=== PATIENT | female | born 1955 | race Caucasian/White ===

== ENCOUNTER 2017-03-30 23:36 | Inpatient (IN) | payer OTHER ==
[~2017-03-30] VITALS: Ht 167.6 cm; Wt 71.1 kg
[~2017-03-30 23:36] MED LIST: ALBU8I INH; ASCO500C PO; ATEN-104 PO; B12-1CHW CHEW; CO Q30CA PO; DENO120P SQ; ECHI125C PO; FASL250I IM; FLAX100013 PO; HYDR-3533 PO; IBUP-232 PO; LISI-360 PO; LORA0.5T PO; LORA10TA PO; LOVA40TA PO; MEDR4PAK3 PO; MULT-116 PO; OMEG500C2 PO; TAB-TAB PO
[2017-03-30 23:39] VITALS: BP 152/78; PULSE 103; RESP 16; TEMP 98.3; O2SAT 99
--- NOTE | 2017-03-30 23:48 | PD ---
HPI Chief Complaint: intracranial mass Time Seen by Provider: 23:39 Travel History International Travel<30 days: No Contact w/Intl Traveler<30days: No Traveled to known affect area: No History of Present Illness HPI 61-year-old female transferred from [facility], accepted by neurosurgeon Dr. Corrales for a left temporal intracranial mass with intracranial hemorrhage. Patient presented to their hospital strokelike symptoms. The symptoms which consisted of right-sided weakness/numbness have since resolved. The patient reports feeling slightly dizzy currently. She otherwise feels well. Workers Compensation Claims Specialist Dr. Hernandes was in the emergency department when the patient arrived , and will be admitting the patient to his service. PFSH Past Medical History Anxiety: Yes Depression: Yes Cancer: Yes (BREAST THYROID) High Cholesterol: Yes COPD: Yes Diminished Hearing: No Hypertension: Yes Past Surgical History Endocrine Surgery: Yes (HEPATIC ANGINOMA X2) Mastectomy: Yes (RT LT INFUSA PORT) Tonsillectomy: Yes (ADNOIDS) Other Surgery: Yes (THYROID CA) Social History Alcohol Use: Yes (2 DRINKS 5XS WEEK) Tobacco Use: No Substance Use: No Allergies-Medications (Allergen,Severity, Reaction): Coded Allergies: Penicillin (Verified Allergy, Severe, RASH, 06/01/14) Codeine (Verified Adverse Reaction, Mild, N/V, 06/01/14) Reported Meds & Prescriptions Reported Meds & Active Scripts Active Ventolin Hfa (Albuterol Sulfate) 8 Gm Aero 2 Puff INH Q4 PRN * SHAKE WELL BEFORE USE * Motrin (Ibuprofen) 600 Mg Tab 600 Mg PO QID GIVE WITH FOOD Medrol Dosepak (Methylprednisolone) 4 Mg Marvin 4 Mg PO DIRECTED TAKE DIRECTED Reported Co Q-10 (Coenzyme Q10 (Ubidecarenone)) 30 Mg Cap 1 Tab PO DAILY [place]-3 Krill Oil (Krill Oil) 500 Mg Cap 500 Mg PO DAILY Echinacea 125 Mg Cap 125 Mg PO DAILY Teodoro Mag Zinc +D3 (Multiple Minerals W/ Vitamins) +D3 Tab 1 Tab PO DAILY Vitamin C (Ascorbic Acid) 500 Mg Cap 500 Mg PO DAILY [id number] (Mecobalamin) 1 Mg Chw 1 Mg CHEW DAILY Flax Seed Oil (Flaxseed (Linseed)) 1,000 Mg Cap 1 Tab PO DAILY Multivitamin (Multivitamins) 1 Tab Tab 1 Tab PO DAILY Xgeva (Denosumab) Inj 1 Mg SQ MONTHLY Faslodex (Fulvestrant) 250 Mg Inj 500 Mg IM Lorazepam 0.5 Mg Tab 0.5 Mg PO Q6 PRN Lortab 5 mg/325 mg (Hydrocodone/Acetaminophen 5 mg/325 mg) 1 Tab 1 Tab PO Q4H PRN Claritin 10 Mg Tab (Loratadine) 10 Mg Tab 10 Mg PO DAILY Lisinopril 10 Mg Tab 10 Mg PO DAILY Lovastatin 40 Mg Tab 40 Mg PO HS Atenolol 100 Mg Tab 100 Mg PO DAILY Review of Systems Except as stated in HPI: all other systems reviewed are Neg Physical Exam Narrative GENERAL: Well-developed, well-nourished, awake, alert, no apparent distress. SKIN: Focused skin assessment warm/dry. HEAD: Atraumatic. Normocephalic. EYES: Pupils equal and round. No scleral icterus. No injection or drainage. ENT: Mucous membranes pink and moist. NECK: Trachea midline. No JVD. CARDIOVASCULAR: Regular rate and rhythm. RESPIRATORY: No accessory muscle use. MUSCULOSKELETAL: No obvious deformities. No clubbing. No cyanosis. No edema. NEUROLOGICAL: Awake and alert. No obvious cranial nerve deficits. Motor grossly within normal limits. Normal speech. No focal deficits. PSYCHIATRIC: Appropriate mood and affect; insight and judgment normal. MDM Medical Decision Making Medical Screen Exam Complete: Yes Emergency Medical Condition: Yes Differential Diagnosis Intracranial mass, intracranial hemorrhage Narrative Course See HPI Diagnosis Primary Impression: Intracranial mass Additional Impression: Intracranial hemorrhage Admitting Information Admitting Physician Requests: Admit Davon Rushing MD Mar 30, 2017 23:48
[2017-03-31] VITALS (17 sets, daily range): BP systolic 120–170; BP diastolic 65–96; PULSE 91–101; RESP 12–20; TEMP 96.3–98.8; O2SAT 93–100
[2017-03-31] MEDS ORDERED: ONDANSETRON HCL 4 MG/2 ML VIAL IV PRN (00:15)
[2017-03-31] MEDS ORDERED: MAGNESIUM SULFATE INJ 2 GM in SODIUM CHLORIDE 0.9% INJ 96 ML IV PRN (00:15)
[2017-03-31] MEDS ORDERED: CHLORHEXIDINE GLUCONATE 2 % 1 PACK (2 CLOTHS) TOP PRN (00:15)
[2017-03-31] MEDS ORDERED: POTASSIUM PHOSPHATE INJ 30 MMOL in SODIUM CHLOR 0.9% 250 ML INJ 250 ML IV PRN (00:15)
[2017-03-31] MEDS ORDERED: LABETALOL HCL 100 MG/20 ML VIAL IV PUSH PRN (00:15)
[2017-03-31] MEDS ORDERED: DEXTROSE 50% IN WATER 50 ML VIAL(D50) IV PUSH PRN (00:15)
[2017-03-31] MEDS ORDERED: POTASSIUM CHLOR 40 MEQ PREMIX 100 ML IV PRN ×2 (00:15)
[2017-03-31] MEDS ORDERED: MAGNESIUM SULFATE INJ 4 GM in SODIUM CHLORIDE 0.9% INJ 92 ML IV PRN (00:15)
[2017-03-31] MEDS ORDERED: POTASSIUM PHOSPHATE MONOBASIC 500 MG TAB PO PRN (00:15)
[2017-03-31] MEDS ORDERED: niCARdipine INJ 25 MG in SODIUM CHLOR 0.9% 250 ML INJ 250 ML IV SCH (00:15)
[2017-03-31] MEDS ORDERED: MAGNESIUM OXIDE 400 MG TAB PO PRN (00:15)
[2017-03-31] MEDS ORDERED: POTASSIUM CHLOR 20 MEQ PREMIX 100 ML IV PRN ×2 (00:15)
[2017-03-31] MEDS ORDERED: SODIUM PHOSPHATE INJ 30 MMOL in SODIUM CHLOR 0.9% 250 ML INJ 240 ML IV PRN (00:15)
[2017-03-31] MEDS ORDERED: MISCELLANEOUS NURSING INFORMATION XX SCH (00:15)
[2017-03-31] MEDS ORDERED: POTASSIUM PHOSPHATE MONOBASIC 500 MG TAB PO/TUBE PRN (00:15)
[2017-03-31] MEDS ORDERED: FLUT50SP EACH NARE (00:28)
[2017-03-31] MEDS ORDERED: MAGN400T2 PO (00:28)
[2017-03-31] MEDS ORDERED: [UNRECOGNIZED DRUG - CODE] PO (00:28)
[2017-03-31] MEDS ORDERED: LOVA40TA PO (00:28)
[2017-03-31] MEDS ORDERED: MONT10TA2 PO (00:28)
[2017-03-31] MEDS ORDERED: METO25TA3 PO (00:28)
[2017-03-31] MEDS ORDERED: DOCU100C PO (00:28)
[2017-03-31] MEDS ORDERED: LISI-515 PO (00:28)
[2017-03-31] MEDS ORDERED: ESCI20TA PO (00:28)
[2017-03-31] MEDS ORDERED: FAMO20TA2 PO (00:28)
[2017-03-31] MEDS ORDERED: CALC600T64 PO (00:28)
[2017-03-31] MEDS ORDERED: FLAX100013 PO (00:28)
[2017-03-31] MEDS ORDERED: CHLO4TAB PO (00:28)
[2017-03-31] MEDS ORDERED: OXYC-432 PO (00:28)
[2017-03-31] MEDS ORDERED: PALB100C (00:28)
[2017-03-31] MEDS ORDERED: DENO120P SQ (00:28)
[2017-03-31] MEDS ORDERED: FASL250I IM (00:28)
[2017-03-31] MEDS ORDERED: VITATAB11 PO (00:28)
[2017-03-31] MEDS ORDERED: FURO20TA PO (00:28)
[2017-03-31] MEDS ORDERED: MILKSUS PO (00:28)
[2017-03-31] MEDS ORDERED: OMEG100010 PO (00:28)
[2017-03-31] MEDS ORDERED: ASPI81TA81 PO (00:28)
[2017-03-31] MEDS ORDERED: AMIO200T PO (00:28)
[2017-03-31] MEDS ORDERED: POLYPOW5 PO (00:28)
[2017-03-31] MEDS ORDERED: LORA-373 PO (00:28)
[2017-03-31] MEDS ORDERED: MULT-159 PO (00:28)
[2017-03-31] MEDS: DEXAMETHASONE SOD PHOS 4 MG/ML VIAL IV PUSH SCH ×5 (01:17→23:54)
[2017-03-31] MEDS: levETIRAcetam INJ 500 MG in SODIUM CHLORIDE 0.9% INJ 100 ML IV SCH ×2 (01:36→12:50)
--- NOTE | 2017-03-31 02:26 | HHI.HP ---
HPI Service Critical Care Medicine Primary Care Physician Reanna Conroy MD Admission Diagnosis intracranial mass, intracranial hemorrhage Diagnosis: Chief Complaint: weakness Travel History International Travel<30 Days: No Contact w/Intl Traveler <30 Da: No Traveled to Known Affected Are: No History of Present Illness This is a 61-year-old female transferred from outside hospital. She originally presented to the outside facility with right-sided weakness and difficulty speaking. She was brought in by her family. CT head at the outside hospital demonstrated a left temporal mass with associated edema and intraparenchymal hemorrhage. She was transferred emergently to our facility for neurosurgery consultation. When she arrived here, she states all of her symptoms have resolved. She denies headache, weakness, numbness, speech problems currently. Denies chest pain, fever, chills, shortness of breath. She does endorse back pain which is chronic for her secondary to breast cancer metastases. The remainder the review systems is negative unless otherwise specified. Review of Systems Constitutional: DENIES: Fatigue, Fever, Weight loss, Chills, Dizziness Eyes: DENIES: Blurred vision, Diplopia, Photosensitivity, Double Vision Respiratory: DENIES: Cough, Hemoptysis, Sputum production, Shortness of breath Cardiovascular: DENIES: Chest pain, Palpitations, Syncope, Dyspnea on Exertion Gastrointestinal: DENIES: Abdominal pain, Constipation, Diarrhea, Nausea, Vomiting Musculoskeletal: COMPLAINS OF: Back pain Integumentary: DENIES: Breast masses Neurologic: COMPLAINS OF: Headache, Localized weakness, Speech Problems, DENIES: Abnormal gait, Paresthesias, Seizures, Tremor Psychiatric: COMPLAINS OF: Confusion Past Family Social History Allergies: Coded Allergies: Contrast Media (Verified Allergy, Severe, 03/30/17) Penicillin (Verified Allergy, Severe, RASH, 03/30/17) Codeine (Verified Adverse Reaction, Mild, N/V, 03/30/17) Past Medical History Anxiety Depression Thyroid cancer Breast cancer with metastases to the spine Hyperlipidemia COPD Hypertension Past Surgical History Hepatic hemangioma resection 2 [id number] Mastectomy Tonsillectomy Adenoidectomy Thyroidectomy Reported Medications Ventolin Hfa (Albuterol Sulfate) 8 Gm Aero 2 Puff INH Q4 PRN * SHAKE WELL BEFORE USE * Motrin (Ibuprofen) 600 Mg Tab 600 Mg PO QID GIVE WITH FOOD Medrol Dosepak (Methylprednisolone) 4 Mg Marvin 4 Mg PO DIRECTED TAKE DIRECTED Co Q-10 (Coenzyme Q10 (Ubidecarenone)) 30 Mg Cap 1 Tab PO DAILY [place]-3 Krill Oil (Krill Oil) 500 Mg Cap 500 Mg PO DAILY Echinacea 125 Mg Cap 125 Mg PO DAILY Teodoro Mag Zinc +D3 (Multiple Minerals W/ Vitamins) +D3 Tab 1 Tab PO DAILY Vitamin C (Ascorbic Acid) 500 Mg Cap 500 Mg PO DAILY [id number] (Mecobalamin) 1 Mg Chw 1 Mg CHEW DAILY Flax Seed Oil (Flaxseed (Linseed)) 1,000 Mg Cap 1 Tab PO DAILY Multivitamin (Multivitamins) 1 Tab Tab 1 Tab PO DAILY Xgeva (Denosumab) Inj 1 Mg SQ MONTHLY Faslodex (Fulvestrant) 250 Mg Inj 500 Mg IM Lorazepam 0.5 Mg Tab 0.5 Mg PO Q6 PRN Lortab 5 mg/325 mg (Hydrocodone/Acetaminophen 5 mg/325 mg) 1 Tab 1 Tab PO Q4H PRN Claritin 10 Mg Tab (Loratadine) 10 Mg Tab 10 Mg PO DAILY Lisinopril 10 Mg Tab 10 Mg PO DAILY Lovastatin 40 Mg Tab 40 Mg PO HS Atenolol 100 Mg Tab 100 Mg PO DAILY Active Ordered Medications See MAR Family History reviewed and found to be noncontributory to her acute illness Social History 2 drinks, 5x/wk, denies tob, doa. Physical Exam Vital Signs Vital Signs Date Time Temp Pulse Resp B/P Pulse Ox O2 Delivery O2 Flow Rate FiO2 03/31/17 02:00 92 16 131/65 99 Room Air 03/31/17 01:30 99 16 158/83 99 Room Air 03/31/17 00:45 101 16 139/79 97 Room Air 03/31/17 00:00 101 16 140/74 97 Room Air 03/30/17 23:39 98.3 103 16 152/78 99 Physical Exam GENERAL: Middle-aged female, sitting in bed HEENT: Normocephalic. Atraumatic. Pupils equal, round, reactive, conjugate. Mucous membranes are moist NECK: Trachea is midline. There is no JVD. CHEST: Equal chest rise. On room air CARDIOVASCULAR: Normal rate, regular rhythm. Sinus by telemetry ABDOMEN: Soft, nontender, nondistended. No guarding. MUSCULOSKELETAL: Pulses 2+. No peripheral edema. NEUROLOGICAL: GCS 15. Pupils as above. Cranial nerves II through XII grossly intact. No gross focal motor or sensory deficits. Muscle strength 5/5 in all extremities. Sensation grossly intact. Assessment and Plan Assessment and Plan Assessment: 61yF with stage IV breast cancer with metastatses to the spine who presents with left temporal mass with associated intraparenchymal hemorrhage. Although she is now neuro intact, she remains critically ill with new intracerebral hemorrhage and high risk for decompensation. Admit to ICU. frequent neuro checks. repeat interval head CT. MRI for evaluation of the mass, which is likely metastatic disease in origin. neurosurgical consultation. theresa. Plan: Left temporal mass Intraparenchymal hemorrhage -- repeat interval head CT -- frequent neuro checks -- admit to ICU -- MRI for eval of the mass -- neurosurgery consult: Antoni -- decadron Back pain secondary to spinal mets -- oxycodone 5mg po q4h prn This patient remains critically ill with one or more organ systems which are or may become a threat to life. I have spent in excess of 40 minutes discontinuously in the care and management of this patient. This time is exclusive of procedures, and includes, but is not limited to, evaluation of the patient, review of the medical record, discussions with family, consultants, nursing staff, or respiratory therapy, and documentation in the medical record. Code Status Full Code Leopoldo Hernandes MD Mar 31, 2017 02:25
[2017-03-31] MEDS: INSULIN NovoLIN REGULAR SUPPLEMENTAL SCALE SQ SCH ×5 (03:00→22:01)
[2017-03-31] MEDS: hydrALAZINE HCL 20 MG/ML VIAL IV PUSH PRN (04:51)
--- NOTE | 2017-03-31 05:38 | RADRPT ---
EXAM DATE/TIME: 03/31/2017 05:07 [facility] COMPARISON: No previous studies available for comparison. INDICATIONS : Altered mental status. Evaluate hemorrhage. RADIATION DOSE: 34.27 CTDIvol (mGy) MEDICAL HISTORY : None SURGICAL HISTORY : None. ENCOUNTER: Initial ACUITY: 1 day PAIN SCALE: 0/10 LOCATION: cranial TECHNIQUE: Multiple contiguous axial images were obtained of the head. Using automated exposure control and adj ustment of the mA and/or kV according to patient size, radiation dose was kept as low as reasonably a chievable to obtain optimal diagnostic quality images. DICOM format image data is available electro nically for review and comparison. FINDINGS: I don't have any priors. A subacute appearing somewhat mass like area of parenchymal hemorrhage is se en in the left temporal and parietal lobe estimated at approximately 2.9 x 4.4 cm in size and surroun ded by a 4.8 x 7.1 cm area of cerebral edema. Small amounts of hemorrhage are suspected in between th e leaves of the tentorium as well, mostly on the left. Small subarachnoid blood seen of the right par ietal and frontal vertex. There is approximately 6 mm of rightward midline shift. No evidence of an acute ischemic event. CONCLUSION: Multifocal intracranial hemorrhage as above including a masslike area of parenchymal hemorrhage of th e left temporal and parietal lobes with about 6 mm of rightward midline shift. Van Orlando MD on March 31, 2017 at 5:32 Board Certified Radiologist. This report was verified electronically.
[2017-03-31] MEDS: CHLORHEXIDINE GLUCONATE 2 % 1 PACK (2 CLOTHS) TOP SCH (05:48)
[2017-03-31] MEDS: ESCITALOPRAM OXALATE 20 MG TAB PO SCH (09:00)
[2017-03-31] MEDS: DOCUSATE SODIUM 50 MG/SENNA 8.6 MG TAB PO SCH ×2 (09:00→21:59)
[2017-03-31] MEDS: FUROSEMIDE 20 MG TAB PO SCH (09:00)
[2017-03-31] MEDS: PRAVASTATIN SOD 40 MG TAB PO SCH (10:24)
[2017-03-31] MEDS ORDERED: GADODIAMIDE PF 287 MG/ML 5 ML VIAL (for RAD MRI) IV ONE (10:24)
[2017-03-31] MEDS: AMIODARONE 200 MG TAB PO SCH (10:24)
[2017-03-31] MEDS: FAMOTIDINE 20 MG TAB PO SCH ×2 (10:24→21:59)
--- NOTE | 2017-03-31 11:37 | RADRPT ---
EXAM DATE/TIME: 03/31/2017 09:27 This report includes an Addendum and supersedes previous reports for this exam. [facility] COMPARISON: CT BRAIN W/O CONTRAST, March 31, 2017, 5:07. INDICATIONS : Mass. CONTRAST: 14 cc Omniscan (gadodiamide) IV MEDICAL HISTORY : Chronic obstructive pulmonary disease. Hypertension. Carcinoma, breast, spine, thyroid, liver. SURGICAL HISTORY : Mastectomy, right. Thyroidectomy. Tonsillectomy. Mitral valve repair. ENCOUNTER: Initial ACUITY: 1 day PAIN SCORE: 0/10 LOCATION: cranial TECHNIQUE: Multiplanar, multisequence MRI of the brain was performed both prior to and following the administrat ion of paramagnetic contrast. FINDINGS: CEREBRUM: MRI confirms the presence of a well-circumscribed, 4.5 x 2.9 cm area of spontaneous increased T1 and isointense T2 weighted imaging the left temporoparietal region. On the medial aspect of this collecti on, there is an area of decreased signal intensity which shows a linear area of enhancement following gadolinium administration. Findings are most characteristic of a 1.5 x 0.8 cm left MCA aneurysm. The surrounding area of increased T1 signal intensity likely represents focal hemorrhage. A 4 mm left to right subfalcine shift. WHITE MATTER: Edema in the left temporal lobe adjacent to the parenchymal hemorrhage. POSTERIOR FOSSA: The cerebellum and brainstem are intact. The 4th ventricle is midline. The cerebellopontine angle is unremarkable. The cerebellar tonsils are normal in position. DIFFUSION IMAGING: No focal areas of restricted diffusion are seen. No evidence of acute infarction. EXTRACRANIAL: The visualized portions of the orbits and paranasal sinuses are unremarkable. POST-CONTRAST: Punctate area of enhancement is identified in the cortical region of the right occiput with additiona l areas of enhancement tracking along the tentorium on the left and adjacent to the falx on the left in the high parietal convexity anteriorly. CONCLUSION: 1. 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 2. Associated 4 mm left to right subfalcine shift. 3. Nonspecific areas of punctate enhancement in the right occiput and tracking along the left tentori um as well as adjacent to the falx in the anterior left high parietal convexity. I do not believe the signal is characteristic of hemorrhage and would consider possible metastatic deposits. Patient murdock s have a history of breast cancer. Dante Rollins MD on March 31, 2017 at 11:19 Board Certified Radiologist. This report was verified electronically. ADDENDUM: Also noted, on susceptibility weighted imaging, all the areas described above show marked susceptibil ity artifact characteristic of some degree of hemosiderin. Again, these could represent small metasta tic deposits or punctate vascular malformations which have intermittently bled in the past. These are as were not on the prior MRI of the brain report aren't imaging 07-18-2012. Dante Rollins MD on March 31, 2017 at 12:33 Board Certified Radiologist. This report was verified electronically.
--- NOTE | 2017-03-31 13:08 | RADRPT ---
EXAM DATE/TIME: 03/31/2017 09:27 [facility] COMPARISON: CT BRAIN W/O CONTRAST, March 31, 2017, 5:07. MRI BRAIN W & W/O CONTRAST, March 31, 2017, 9:27. INDICATIONS : Brain hematoma MEDICAL HISTORY : Chronic obstructive pulmonary disease. Hypertension. Carcinoma, breast, spine, thyroid, liver. SURGICAL HISTORY : Mastectomy, right. Thyroidectomy. Tonsillectomy. Mitral valve repair. ENCOUNTER: Initial ACUITY: 1 day PAIN SCORE: 0/10 LOCATION: cranial Please note a normal MRA of the brain does not entirely exclude the possibility of a small aneurysm, nor the possibility of distal intracranial vessel disease. TECHNIQUE: 3D time of flight MRA was performed. Source images, multiplanar STS MIP, and 3D volume MIP reconstru ctions were reviewed. FINDINGS: There is excellent visualization of the major intracranial arteries out to the second-order branch ve ssels. Large left temporal lobe hematoma is again noted. There is focal mass effect with splaying and inward displacement of the left middle cerebral artery vessels. There is no evidence of discrete aneurysm. Along the medial margin of the hematoma there is a T1 hypointense area with T2 hyperintensity suggest ing hyperacute hemorrhage. Susceptibility weighted imaging demonstrates concentric ringlike structure s within the hematoma of varying signal intensity characteristic of varying aged hemorrhage. SWI also demonstrates focal susceptibility artifact with small enhancing lesions along the cerebral c onvexity and in the left occipital region. The proximal arterial luminal services are smooth without findings indicative of significant vasculop athy or vasculitis. The A1 segment of the right anterior cerebral artery is hypoplastic. Posterior circulation appears normal. CONCLUSION: 1. No evidence of aneurysm or significant vasculopathy. 2. Significant mass effect on the middle cerebral artery vessels from the large left temporal lobe he matoma. 3. Review of MRI demonstrates small focal magnetic susceptibility lesions with enhancement. Hemorrhag ic metastatic deposits versus small vascular malformations with chronic hemorrhage should be consider ed as possible etiologies. Amyloid angiopathy although less likely also needs to be considered. Harlan Richey MD on March 31, 2017 at 12:31 Board Certified Radiologist. This report was verified electronically.
[2017-03-31 13:30] LABS: PROTHROMBIN TIME - PATIENT 10.7 SEC (9.8-11.6)
--- NOTE | 2017-03-31 14:23 | PD.CONS ---
[facility] Service neurosurgery Consult Requested By dr Hernandes Reason for Consult Hemorrhagic mass Primary Care Physician Reanna Conroy MD History of Present Illness This is a 61-year-old female transferred from [facility]. She presented to the outside facility with right-sided weakness and difficulty speaking. She was brought to the emergency room by her family. CT head at the outside hospital demonstrated a left temporal mass with associated edema and intraparenchymal hemorrhage. She was transferred emergently to [place]. All of her symptoms have resolved. She denies headache, weakness, numbness, speech problems currently. Denies chest pain, fever, chills, shortness of breath. She has history of breast cancer with metastases. Denies any incontinence of stool or urinary retention. Neurosurgical consultation was requested Physical Exam Physical Exam Vital Signs Vital Signs Date Time Temp Pulse Resp B/P Pulse Ox O2 Delivery O2 Flow Rate FiO2 03/31/17 02:00 92 16 131/65 99 Room Air 03/31/17 01:30 99 16 158/83 99 Room Air 03/31/17 00:45 101 16 139/79 97 Room Air 03/31/17 00:00 101 16 140/74 97 Room Air 03/30/17 23:39 98.3 103 16 152/78 99 Physical Exam GENERAL: Middle-aged female, sitting in bed HEENT: Normocephalic. Atraumatic. Pupils equal, round, reactive, conjugate. Mucous membranes are moist NECK: Trachea is midline. There is no JVD. CHEST: Equal chest rise. On room air CARDIOVASCULAR: Normal rate, regular rhythm. Sinus by telemetry ABDOMEN: Soft, nontender, nondistended. No guarding. MUSCULOSKELETAL: Pulses 2+. No peripheral edema. NEUROLOGICAL: GCS 15. Pupils as above. Cranial nerves II through XII grossly intact. No gross focal motor or sensory deficits. Muscle strength 5/5 in all extremities. Sensation grossly intact. Septic Shock Reassessment Septic Shock Reassessment Assessment and Plan Assessment and Plan Assessment and Plan Assessment: 61yF with stage IV breast cancer with metastatses to the spine who presents with left temporal mass with associated intraparenchymal hemorrhage. Although she is now neuro intact, she remains critically ill with new intracerebral hemorrhage and high risk for decompensation. Admit to ICU. frequent neuro checks. repeat interval head CT. MRI for evaluation of the mass, which is likely metastatic disease in origin. neurosurgical consultation. theresa. Plan: Left temporal mass Intraparenchymal hemorrhage -- repeat interval head CT -- frequent neuro checks -- admit to ICU -- MRI for eval of the mass -- neurosurgery consult: Antoni -- yonatan Review of Systems Constitutional: DENIES: Fatigue, Fever, Weight loss, Chills, Dizziness Eyes: DENIES: Blurred vision, Diplopia, Photosensitivity, Double Vision Respiratory: DENIES: Cough, Hemoptysis, Sputum production, Shortness of breath Cardiovascular: DENIES: Chest pain, Palpitations, Syncope, Dyspnea on Exertion Gastrointestinal: DENIES: Abdominal pain, Constipation, Diarrhea, Nausea, Vomiting Musculoskeletal: COMPLAINS OF: Back pain Integumentary: DENIES: Breast masses Neurologic: COMPLAINS OF: Headache, Localized weakness, Speech Problems, DENIES: Abnormal gait, Paresthesias, Seizures, Tremor Psychiatric: COMPLAINS OF: Confusion Past Family Social History Allergies: Coded Allergies: Contrast Media (Verified Allergy, Severe, 03/30/17) Penicillin (Verified Allergy, Severe, RASH, 03/30/17) Codeine (Verified Adverse Reaction, Mild, N/V, 03/30/17) Past Medical History Anxiety Depression Thyroid cancer Breast cancer with metastases to the spine Hyperlipidemia COPD Hypertension Past Surgical History Hepatic hemangioma resection 2 [id number] Mastectomy Tonsillectomy Adenoidectomy Thyroidectomy Reported Medications Ventolin Hfa (Albuterol Sulfate) 8 Gm Aero 2 Puff INH Q4 PRN * SHAKE WELL BEFORE USE * Motrin (Ibuprofen) 600 Mg Tab 600 Mg PO QID GIVE WITH FOOD Medrol Dosepak (Methylprednisolone) 4 Mg Marvin 4 Mg PO DIRECTED TAKE DIRECTED Co Q-10 (Coenzyme Q10 (Ubidecarenone)) 30 Mg Cap 1 Tab PO DAILY [place]-3 Krill Oil (Krill Oil) 500 Mg Cap 500 Mg PO DAILY Echinacea 125 Mg Cap 125 Mg PO DAILY Teodoro Mag Zinc +D3 (Multiple Minerals W/ Vitamins) +D3 Tab 1 Tab PO DAILY Vitamin C (Ascorbic Acid) 500 Mg Cap 500 Mg PO DAILY [id number] (Mecobalamin) 1 Mg Chw 1 Mg CHEW DAILY Flax Seed Oil (Flaxseed (Linseed)) 1,000 Mg Cap 1 Tab PO DAILY Multivitamin (Multivitamins) 1 Tab Tab 1 Tab PO DAILY Xgeva (Denosumab) Inj 1 Mg SQ MONTHLY Faslodex (Fulvestrant) 250 Mg Inj 500 Mg IM Lorazepam 0.5 Mg Tab 0.5 Mg PO Q6 PRN Lortab 5 mg/325 mg (Hydrocodone/Acetaminophen 5 mg/325 mg) 1 Tab 1 Tab PO Q4H PRN Claritin 10 Mg Tab (Loratadine) 10 Mg Tab 10 Mg PO DAILY Lisinopril 10 Mg Tab 10 Mg PO DAILY Lovastatin 40 Mg Tab 40 Mg PO HS Atenolol 100 Mg Tab 100 Mg PO DAILY Active Ordered Medications Current Medications Magnesium Oxide 800 mg 800 mg UNSCH PRN PO For Magnesium 1.2 - 1.6 mg/dL; Start 03/31/17 at 00:15 Magnesium Sulfate 4 gm/Sodium Chloride 100 ml @ 50 mls/hr UNSCH PRN IV For Magnesium 0.9 - 1.1 mg/dL; Start 03/31/17 at 00:15 Magnesium Sulfate 2 gm/Sodium Chloride 100 ml @ 50 mls/hr UNSCH PRN IV For Magnesium 1.2 - 1.6 mg/dL; Start 03/31/17 at 00:15 Potassium Chloride 100 ml @ 50 mls/hr Q2H PRN IV For Potassium 2.8 - 3.2 mEq/L ; Start 03/31/17 at 00:15 Potassium Chloride 100 ml @ 50 mls/hr Q2H PRN IV For Potassium 3.3 - 3.5 mEq/L ; Start 03/31/17 at 00:15 Potassium Chloride 100 ml @ 50 mls/hr Q2H PRN IV For Potassium 2.8 - 3.2 mEq/L ; Start 03/31/17 at 00:15 Potassium Chloride (KCl 40 Meq Premix Inj) 100 ml @ 25 mls/hr UNSCH PRN IV For Potassium 3.3 - 3.5 mEq/L; Start 03/31/17 at 00:15 Potassium Phosphate (K-Phos) 2,000 mg Q4H PRN PO For Phosphorus < 2.5 mg/dL; Start 03/31/17 at 00:15 Potassium Phosphate 2000 mg 2,000 mg UNSCH PRN PO/TUBE SEE LABEL COMMENTS; Start 03/31/17 at 00:15 Potassium Phosphate 30 mmol/ Sodium Chloride 260 ml @ 42 mls/hr UNSCH PRN IV SEE LABEL COMMENTS; Start 03/31/17 at 00:15 Sodium Phosphate/ Sodium Chloride (Sodium Phosphate Inj/NS 250 ml Inj) 250 ml @ 42 mls/hr UNSCH PRN IV For Phosphorus < 2.5 mg/dL; Start 03/31/17 at 00:15 Dextrose (D50w (Vial) Inj) 25 ml UNSCH PRN IV PUSH HYPOGLYCEMIA-SEE COMMENTS; Start 03/31/17 at 00:15 Insulin Human Regular (NovoLIN R SUPPLEMENTAL SCALE) 1 ACHS AND 3AM SQ ; Start 03/31/17 at 03:00 Famotidine (Pepcid) 20 mg Q12HR PO Last administered on 03/31/17 10:24; Start 03/31/17 at 09:00 Ondansetron HCl (Zofran Inj) 4 mg Q6H PRN IV NAUSEA OR VOMITING; Start at 00:15 Miscellaneous Information 1 Q361D XX ; Start 03/31/17 at 00:15 Chlorhexidine Gluconate (Chlorhexidine 2% Cloth) 3 pack Taper DAILY@04 TOP Last administered on 03/31/17 05:48; Start 03/31/17 at 04:00; Stop 03/27/18 at 03:59 Chlorhexidine Gluconate (Chlorhexidine 2% Cloth) 3 pack UNSCH PRN TOP HYGIENIC CARE; Start 03/31/17 at 00:15 Senna/Docusate Sodium (Lori-Colace) 1 tab BID PO ; Start 03/31/17 at 09:00 Dexamethasone Sodium Phosphate 4 mg 4 mg Q6HR IV PUSH Last administered on 03/31 10:30; Start 03/31/17 at 00:13 Nicardipine HCl/ Sodium Chloride (Cardene Inj/NS 250 ml Inj) 260 ml @ 0 mls/hr TITRATE IV ; Start 03/31/17 at 00:15 Labetalol HCl (Trandate Inj) 20 mg Q15M PRN IV PUSH sbp > 160; Start 03/31/17 at 00:15 Hydralazine HCl 10 mg 10 mg Q30M PRN IV PUSH sbp > 160 Last administered on 04:51; Start 03/31/17 at 00:15 Levetriacetam/ Sodium Chloride (Keppra Inj/NS Inj) 105 ml @ 420 mls/hr Q12H IV Last administered on 03/31/17 12:50; Start 03/31/17 at 01:00 Oxycodone HCl (Roxicodone) 5 mg Q4H PRN PO pain 1-5 Last administered on 05:25; Start 03/31/17 at 01:00 Amiodarone HCl (Cordarone) 200 mg DAILY PO Last administered on 03/31/17 10:24 ; Start 03/31/17 at 09:00 Escitalopram Oxalate (Lexapro) 20 mg DAILY PO ; Start 03/31/17 at 09:00 Furosemide (Lasix) 20 mg DAILY PO ; Start 03/31/17 at 09:00 Pravastatin Sodium (Pravachol) 40 mg DAILY PO Last administered on 03/31/17 10 :24; Start 03/31/17 at 09:00 Montelukast Sodium (Singulair) 10 mg HS PO ; Start 03/31/17 at 21:00 Gadodiamide (Omniscan Pf Inj) 14 ml STK-MED ONCE IV Last administered on 10:24; Start 03/31/17 at 10:24; Stop 03/31/17 at 10:25; Status DC Family History It was reviewed and found to be noncontributory to her acute illness Social History Denies smoking. She 2 drinks a day Denies ilicit drug use Physical Exam Vital Signs Vital Signs Date Time Temp Pulse Resp B/P Pulse Ox O2 Delivery O2 Flow Rate FiO2 03/31/17 12:00 95 03/31/17 12:00 98.8 91 18 120/76 100 03/31/17 10:00 98 03/31/17 08:00 98.6 99 17 126/70 100 03/31/17 08:00 97 03/31/17 07:52 98 21 03/31/17 07:00 98 Room Air 21 03/31/17 06:00 98 03/31/17 04:00 100 03/31/17 04:00 98.1 100 12 170/96 98 03/31/17 03:00 93 03/31/17 02:15 98.0 92 19 142/80 100 03/31/17 02:00 92 16 131/65 99 Room Air 03/31/17 01:30 99 16 158/83 99 Room Air 03/31/17 00:45 101 16 139/79 97 Room Air 03/31/17 00:00 101 16 140/74 97 Room Air 03/30/17 23:39 98.3 103 16 152/78 99 Physical Exam ms Harris is alert, awake and oriented to time, place and person. Speech is fluent. Higher cognitive functions are normal. Cranial nerve examination demonstrates the pupils to be equal, round, and reactive to light. Extra-ocular movements are intact. Facial motor and sensory function are normal and symmetrical. Gross hearing is intact, bilaterally. The uvula is midline and elevates symmetrically with the soft palate. Sternocleidomastoid and trapezius muscles have normal and symmetrical strength. Other cranial nerves are intact. Neck is soft and supple. Cervical spine has a full range of motion in anterior flexion, extension, lateral bending, and rotation without pain. There is no tenderness to palpation to the spinous processes or paraspinal muscles. Muscle testing reveals normal bulk and tone overall without rigidity, spasticity , fasciculations, or atrophy. Muscle strength is 5/5 in all muscle groups of both upper extremities including deltoid, biceps, triceps, brachioradialis, wrist extension and maintainer central office. In the lower extremities, strength is 5/5 in both iliopsoas, quadriceps, hamstrings, plantar flexion, dorsiflexion, and extensor hallicus longus. Sensory examination is intact to light touch and sharp/dull discrimination in both the upper and lower extremities, symmetrically. Deep tendon reflexes are 2+ and symmetrical in the biceps, triceps, and brachioradialis, bilaterally, in the upper extremities. In the lower extremities , the patellar and Achilles are 2+, bilaterally. There is a bilateral plantar flexion response. Hoffmanns sign is negative. There is no clonus or other abnormal reflexes noted. Cerebellar examination is intact to [id number] test, rapid rhythmic alternating motion. There is no dysmetria, dysdiadochokinesia, truncal ataxia, or tremor. Laboratory Laboratory Tests Test 03/31/17 03/31/17 02:37 12:27 Nasal Screen MRSA (PCR) MRSA NOT DETECTED Prothrombin Time 10.7 Prothromb Time International 1.0 Ratio Imaging Last Impressions Head CT 03/31/17 0600 Signed Impressions: Service Date/Time: Friday, March 31, 2017 05:07 - CONCLUSION: Multifocal intracranial hemorrhage as above including a masslike area of parenchymal hemorrhage of the left temporal and parietal lobes with about 6 mm of rightward midline shift. Van Orlando MD Head Magnetic Resonance Angiography 03/31/17 0000 Signed Impressions: Service Date/Time: Friday, March 31, 2017 09:27 - CONCLUSION: 1. No evidence of aneurysm or significant vasculopathy. 2. Significant mass effect on the middle cerebral artery vessels from the large left temporal lobe hematoma. 3. Review of MRI demonstrates small focal magnetic susceptibility lesions with enhancement. Hemorrhagic metastatic deposits versus small vascular malformations with chronic hemorrhage should be considered as possible etiologies. Amyloid angiopathy although less likely also needs to be considered. Harlan Richey MD Brain MRI 03/31/17 0000 Signed Impressions: Service Date/Time: Friday, March 31, 2017 09:27 - CONCLUSION: 1. 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 2. Associated 4 mm left to right subfalcine shift. 3. Nonspecific areas of punctate enhancement in the right occiput and tracking along the left tentorium as well as adjacent to the falx in the anterior left high parietal convexity. I do not believe the signal is characteristic of hemorrhage and would consider possible metastatic deposits. Patient does have a history of breast cancer. Dante Rollins MD ADDENDUM: Also noted, on susceptibility weighted imaging, all the areas described above show marked susceptibility artifact characteristic of some degree of hemosiderin. Again, these could represent small metastatic deposits or punctate vascular malformations which have intermittently bled in the past. These areas were not on the prior MRI of the brain report aren't imaging 07-18-2012. Dante Rollins MD Attending Statement Neuro. I review her clinical and radiological findings. Recommend neuro checks in a serial fashion. Her CT was reported as consistent with a hemorrhagic mass, however represent a large intracranial aneurysm. I recommend to obtain an MRI and an MR angiography of the brain. If there is persistent suspicion I we'll obtain a cerebral angiography Pulmonary. aggressive pulmonary toilette, nasotracheal suction, and breathing treatments with nebulizers. EEG Daily PT and OT Nutrition. Tolerating Oral diet Renal. Continue to monitor closely urine output, BUN and creatinine Endocrine. Continue to Monitor serial Acu checks and SSI as needed in detail ID continue to monitor for signs of infection Continue Protonix for stress ulcer prophylaxis Continue Bertram hose and SCD's for DVT prophylaxis Further recommendations will be provided depending on the patient's clinical evaluation and follow up studies. Discuss with Dr.Harman Lancaster. Her cerebral angiography was negative for aneurysm. Suspect possible metastatic disease to the brain. Recommend to obtain CT chest, abdomen, pelvis Jorge Alberto Corrales MD Mar 31, 2017 14:23
[2017-03-31 14:33] LABS: APTT (PATIENT) 29.2 SEC (24.3-30.1)
[2017-03-31] MEDS ORDERED: fentaNYL CITRATE 250 MCG/5 ML AMP ONE (15:13)
[2017-03-31] MEDS ORDERED: MIDAZOLAM HCL 2 MG/2 ML VIAL ONE ×2 (15:13→15:43)
[2017-03-31] MEDS ORDERED: IODIXANOL 320 MG/ML 50 ML VIAL (for RAD SPEC) I-ARTERIAL ONE (16:07)
--- NOTE | 2017-03-31 16:44 | RADRPT ---
EXAM DATE/TIME: 03/31/2017 15:15 [place] COMPARISON: No previous studies available for comparison. INDICATIONS : Patient with a history of intracranial hemorrhage needs angiogram. MEDICAL HISTORY : Anxiety Depression Thyroid cancer Breast cancer with metastases to spine Hyperlipidemia COPD HTN SURGICAL HISTORY : Hepatic hemangioma resection x2 [id number] Mastectomy Tonsillectomy Adenoidectomy Thyroidectomy CABG ENCOUNTER: Initial ACUITY: 1 day PAIN SCORE: 4/10 LOCATION: Back FLUORO TIME: 3.2 minutes IMAGE SERIES: 6 ACCESS SITE: Right Femoral artery SEDATION TIME: 30 minutes CONTRAST: 25 cc Visipaque (iodixanol) MEDICATION(S): 1.) 2.5 mg midazolam (Versed) IV 2.) 125 mcg fentanyl (Sublimaze) IV DEVICE(S): 1.) Right common femoral artery syvek PROCEDURE : 1. Ultrasound-guided puncture of the access site. 2. Conscious sedation with continuous EKG and Oximetry monitoring. 3. Angiography of the left internal carotid The risks, benefits and alternatives to the procedure were explained and verbal and written consent w as obtained. The site was prepped in sterile fashion. Full sterile technique was used, including ca p, mask, sterile gloves and gown and a large sterile sheet. Hand hygiene and 2% chlorhexidine and/or betadine/alcohol prep was utilized per protocol for cutaneous antisepsis. The skin and subcutaneous tissues were infiltrated with local anesthetic solution. With ultrasound and fluoroscopic guidance the selected artery was punctured and a vascular sheath was placed A SAPPHIRE 2 catheter was used to select the left common carotid artery. Position was confirmed with positi ve contrast. Catheter was then advanced into the internal. Contrast injection showed normal arborizat ion of the anterior and middle cerebral arteries without aneurysmal disease. There is some expected d isplacement of the inferior branches of the left MCA territory secondary to the masslike hemorrhage i n the left temporal lobe. Rotational angiogram again showed similar findings without aneurysmal disea se. The puncture site was closed with manual pressure and hemostasis was obtained. The patient tolerated the procedure well and there were no complications. Conscious sedation was performed with the prescribed dosages and duration as above in the presence of an independent trained radiology nurse to assist in the monitoring of the patient. EKG and oximetry remained stable throughout the procedure. CONCLUSION: 1. No aneurysmal disease. 2. Displacement of the inferior branches of the left MCA territory secondary to the masslike parenchy mal hemorrhage in the left temporal lobe. Dante Rollins MD on March 31, 2017 at 16:22 Board Certified Radiologist. This report was verified electronically.
--- NOTE | 2017-03-31 17:22 | HHI.CCPN ---
Subjective Remarks/Hospital Course This is a 61-year-old female transferred from outside hospital. She originally presented to the outside facility with right-sided weakness and difficulty speaking. She was brought in by her family. CT head at the outside hospital demonstrated a left temporal mass with associated edema and intraparenchymal hemorrhage. She was transferred emergently to our facility for neurosurgery consultation. When she arrived here, she states all of her symptoms have resolved. She denies headache, weakness, numbness, speech problems currently. Denies chest pain, fever, chills, shortness of breath. She does endorse back pain which is chronic for her secondary to breast cancer metastases. The remainder the review systems is negative unless otherwise specified. 03/31 1700 hours: Imaging studies of the brain indicate probable metastatic lesions, one quite large left hemisphere. Oncology has been consulted and metastatic workup begun. Keppra started because initial event may have been a seizure. Objective Vital Signs Date Time Temp Pulse Resp B/P Pulse Ox O2 Delivery O2 Flow Rate FiO2 03/31/17 14:00 91 03/31/17 12:00 98.8 18 120/76 100 03/31/17 07:52 21 03/31/17 07:00 Room Air Objective Remarks GENERAL: Middle-aged female, conversant. HEENT: Normocephalic. Atraumatic. Mucous membranes are moist NECK: Trachea is midline. Controls airway, widely patent. CHEST: Equal chest rise. On room air. Clear, no adventitious sounds. CARDIOVASCULAR: Normal rate, regular rhythm. Sinus by telemetry ABDOMEN: Soft, nontender, nondistended. No guarding. MUSCULOSKELETAL: Pulses 2+. No peripheral edema. NEUROLOGICAL: GCS 15. Pupils as above. Cranial nerves II through XII grossly intact. No gross focal motor or sensory deficits. Muscle strength 5/5 in all extremities. Sensation grossly intact. A/P Assessment and Plan Assessment: 61yF with stage IV breast cancer with metastatses to the spine who presents with left temporal mass with associated intraparenchymal hemorrhage. Although she is now neuro intact, she remains critically ill with new intracerebral hemorrhage and high risk for decompensation. Admit to ICU. frequent neuro checks. repeat interval head CT. MRI for evaluation of the mass, which is likely metastatic disease in origin. neurosurgical consultation. tehresa. Plan: Left temporal mass Intraparenchymal hemorrhage -- repeat interval head CT -- frequent neuro checks -- admit to ICU -- MRI for eval of the mass -- neurosurgery consult: Antoni -- decadron Back pain secondary to spinal mets -- oxycodone 5mg po q4h prn Overall impression: Probable cerebral mets from primary breast cancer with widespread metastatic disease. Stable hemodynamics and respiratory function. Isauro Cohen MD Mar 31, 2017 17:22
--- NOTE | 2017-03-31 17:33 | PD.RAD ---
Post Procedure Progress Note Pre Procedure Diagnosis: (1) Intracranial mass (2) Intracranial hemorrhage Post Procedure Diagnosis: (1) Intracranial mass (2) Intracranial hemorrhage Procedure Date: Mar 31, 2017 Supervising Radiologist: Dante Rollins Proceduralist/Assist: Kenzie Fu, RT(R), Nando Read, RT(R) Anesthesia: Local, Analgesia, Conscious Sedation Plan of Activity Patient to Unit: Critical Care Patient Condition: Good See PACS Report for procedural detail/treatment Vascular-Arterial Procedure Procedure 1 Procedure Site: Left Carotid (Internal) Procedure(s): Angiogram Access Access Site(s): Right Femoral Artery Closure Site(s): Right hemostasis patch Findings: No aneurysmal disease Displacement of inferior branches of left MCA territory due to mass effect from left temporal lesion. Dante Rollins MD Mar 31, 2017 17:33
[2017-03-31] MEDS: levETIRAcetam 500 MG TAB PO SCH (21:59)
[2017-03-31] MEDS: MONTELUKAST SODIUM 10 MG TAB PO SCH (21:59)
--- NOTE | 2017-03-31 22:38 | MB ---
cc: ROSALIO PERKINS MD, RUBY ANNE E. M.D. DATE OF CONSULTATION: 03/31/2017 DATE OF : 1955 REFERRING PHYSICIAN: Dr. Ayan Perkins CHIEF COMPLAINT Dr. Perkins requested consultation for Mrs. Zamarripa regarding metastatic breast cancer. HISTORY OF PRESENT ILLNESS Mrs. Zamarripa is a 61-year-old woman well-known patient to Dr. El Snow. She was initially diagnosed with a T1 N1 M0 breast cancer in 1992, which was estrogen receptor positive. She participated in clinical trial and received six cycles of adjuvant systemic chemotherapy, adriamycin and cytoxan. She received adjuvant hormonal therapy with Zoladex for a year and tamoxifen for 5 years. On January 15, 2010, she was diagnosed with recurrent disease in the mid chest wall. She received external beam radiation under the care of Dr. Jil Lora. She tolerated treatment well. She was followed by Dr. Snow until his mcc and subsequently transferred her are to Dr. Dr. Lui López. She developed a recurrence of her breast cancer in 2011. Records of that was not available during the consultation. She reports that the recurrence went away. She was not treated. She recurred again three years ago and she has been on Faslodex and Ibrance ever since. She reports having an estrogen positive breast cancer for which she is on Ibrance and Faslodex. She reports also having a HER2/vee over expressing breast cancer which was originally not tested for standard of care initial diagnosis back in 1992. She is tolerating her current regimen well with Ibrance and Faslodex. She has fatigue associated with her Ibrance and cytopenias. She was dose reduced to 100 milligrams. She reports her last staging evaluation actually showed stable disease. She has had no headache, no HOME SERVICE DIRECTOR symptoms. On the day of presentation she presented with stroke-like symptoms which began abruptly. She had right-sided weakness. She felt slightly dizzy. She was seen at [facility] and subsequently transferred to [facility], accepted by Dr. Corrales with the intracranial mass with intracranial hemorrhage. Imaging study included MRA of the brain which shows no aneurysm or significant vasculopathy. There is mass effect on the middle cerebral artery from a large left temporal lobe hematoma. Cerebral angiogram showed no aneurysm. There is displacement of the inferior branches of the left MCA territory secondary to mass-like parenchymal hemorrhage in the left temporal lobe. The brain MRI showed a well circumscribed 4.5 x 2.9 area of increased T1, T2 imaging in the left temporoparietal region. The surrounding area had significant focal hemorrhage, questionable left MCA aneurysm which was clarified by the cerebral angiogram. CT of the head showed multifocal intracranial hemorrhage. Ms. Zamarripa has responded well to the steroids. She has had no seizure events. She has tolerated the angiogram well. She is intent on having her HOME SERVICE DIRECTOR lesions biopsied, however, we discussed the possibility that these lesions are indeed metastatic disease. She is on the third week of Ibrance and thus may have significant cytopenias. PAST MEDICAL HISTORY: 1. Anxiety and depression. 2. Breast cancer. Recurrent disease. 3. Metastatic breast cancer, HER2/vee over expressing ER positive. 4. Hyperlipidemia. 5. COPD. 6. Hepatic adenoma. 7. Hypertension. PAST SURGICAL HISTORY: 1. Hepatic hemangioma/adenoma resection x2. 2. Djcpnb-I-Eqna placement. 3. Lumpectomy. 4. Metacystectomy. 5. Tonsillectomy. 6. Adenoidectomy. 7. Thyroidectomy. FAMILY HISTORY: Noncontributory. SOCIAL HISTORY She drinks two drinks five times a week. Denies any tobacco or illicit drug use. ALLERGIES: ALLERGIES TO CODEINE, CONTRAST MEDIA AND PENICILLIN. MEDICATIONS Current medication include - 1. Singulair 2. Keppra. 3. Pepcid 4. Lori-Colace 5. Amiodarone 6. Lexapro. 7. Lasix 8. Pravachol. 9. Decadron PHYSICAL EXAMINATION: VITAL SIGNS: Temperature 96.3, heart rate 100, respiratory rate 18, blood pressure 128/70, saturation 97%. GENERAL: Ms. Zamarripa is a well-developed, well-nourished, short, pleasant woman in no acute distress. HEENT: Her pupils are round, reactive to light and accommodation. Oropharynx is clear. Neck: Supple with no adenopathy. Lungs were clear. Cardiovascular: Exam reveals normal rate, rhythm. Abdomen: With multiple scars, midline sternotomy scar. Lower extremities: No edema. Breasts: Lumpectomy scar on the right breast. ASSESSMENT AND PLAN: Ms. Zamarripa is a 61 year-old woman with multiple medical problems. She has a long history of metastatic breast cancer and appeared to be responding to Ibrance and Faslodex. She has an ER positive HER2/vee over expressing disease. We discussed the mechanism of action of Ibrance. This is a small molecule CDK4 inhibitor. There is potential for HOME SERVICE DIRECTOR penetration and HOME SERVICE DIRECTOR metastatic disease. We discussed the propensity for developing HOME SERVICE DIRECTOR metastatic disease with HER2/vee over expressing breast cancers. The findings on imaging appears to be related to hemorrhage, and her symptoms have resolved. We will check her CBC and coagulation. Her PT/PTT appears to be normal. Will check fibrinogen. She seemed to have developed these symptoms the third week of her Ibrance to cytopenias. She is pending consultation with Dr. Corrales in the morning. The angiogram ruled out the possibility of aneurysm. Radiation oncology will be consulted. She is known to Dr. Napoleon Beal. Dr. López will return on Monday to discuss systemic treatment for her metastatic breast cancer. It is not clear that this is progression of disease or response to current therapy. Recommend holding Ibrance at present. Will evaluate if she has adequate hemostasis. Her questions were answered to her satisfaction. Shellie Coffman MD RAD/LISA /9:38 PM /10:12 PM
[2017-04-01] VITALS (7 sets, daily range): BP systolic 98–158; BP diastolic 50–93; PULSE 87–108; RESP 16–18; TEMP 96.1–96.9; O2SAT 95–99
[2017-04-01] MEDS: INSULIN NovoLIN REGULAR SUPPLEMENTAL SCALE SQ SCH ×5 (03:18→22:20)
[2017-04-01] MEDS: CHLORHEXIDINE GLUCONATE 2 % 1 PACK (2 CLOTHS) TOP SCH (03:20)
[2017-04-01 04:15] LABS: HEMATOCRIT 31.1 % (35.0-46.0); MEAN CELL VOLUME 92.4 FL (80.0-100.0); MEAN CORPUSCULAR HEMOGLOBIN 31.7 PG (27.0-34.0); MEAN CORPUSCULAR HGB CONC 34.3 % (32.0-36.0); PLATELET COUNT 233 TH/MM3 (150-450); RED BLOOD COUNT 3.37 MIL/MM3 (4.00-5.30); RED CELL DISTRIBUTION WIDTH 26.7 % (11.6-17.2); WHITE BLOOD COUNT 4.9 TH/MM3 (4.0-11.0)
[2017-04-01 04:20] LABS: REVIEW FLAG FINAL
[2017-04-01 04:37] LABS: APTT (PATIENT) 26.7 SEC (24.3-30.1); PROTHROMBIN TIME - PATIENT 10.8 SEC (9.8-11.6)
[2017-04-01 04:39] LABS: BICARBONATE 25.7 MEQ/L (21.0-32.0); POTASSIUM 4.5 MEQ/L (3.5-5.1)
[2017-04-01] MEDS: DEXAMETHASONE SOD PHOS 4 MG/ML VIAL IV PUSH SCH ×3 (06:50→17:55)
[2017-04-01] MEDS: ESCITALOPRAM OXALATE 20 MG TAB PO SCH (09:00)
[2017-04-01] MEDS: FUROSEMIDE 20 MG TAB PO SCH (09:00)
[2017-04-01] MEDS: AMIODARONE 200 MG TAB PO SCH (09:34)
[2017-04-01] MEDS: DOCUSATE SODIUM 50 MG/SENNA 8.6 MG TAB PO SCH ×2 (09:34→22:11)
[2017-04-01] MEDS: levETIRAcetam 500 MG TAB PO SCH ×2 (09:34→22:11)
[2017-04-01] MEDS: PRAVASTATIN SOD 40 MG TAB PO SCH (09:34)
[2017-04-01] MEDS: FAMOTIDINE 20 MG TAB PO SCH ×2 (09:35→22:11)
--- NOTE | 2017-04-01 11:51 | HHI.PR ---
Subjective Remarks anxious. Objective Vitals heart reg lung cta abd s/nt ext no edema Vital Signs Date Time Temp Pulse Resp B/P Pulse Ox O2 Delivery O2 Flow Rate FiO2 04/01/17 08:00 96.5 98 18 135/93 97 04/01/17 04:00 96.9 92 17 127/67 98 04/01/17 00:06 96.7 108 17 98/50 95 03/31/17 20:00 96.3 100 18 128/70 97 03/31/17 19:12 Room Air 03/31/17 18:00 93 03/31/17 17:31 98.3 94 20 122/80 93 03/31/17 16:30 98.3 94 20 122/80 93 03/31/17 16:30 94 03/31/17 14:00 91 03/31/17 12:00 95 03/31/17 12:00 98.8 91 18 120/76 100 03/31/17 03/31/17 04/01/17 14:59 22:59 06:59 Intake Total 200 ml 240 ml 240 ml Output Total 300 ml Balance -100 ml 240 ml 240 ml Intake Oral 100 ml 240 ml 240 ml IV Total 100 ml Output Urine Total 300 ml # Voids 1 1 2 # Bowel Movements 0 0 Result Diagram: 04/01/17 0400 04/01/17 0400 A/P Problem List: (1) Intracranial mass Status: Acute Plan: This is a 61-year-old female transferred from outside hospital. She originally presented to the outside facility with right-sided weakness and difficulty speaking. She was brought in by her family. CT head at the outside hospital demonstrated a left temporal mass with associated edema and intraparenchymal hemorrhage. She was transferred emergently to our facility for neurosurgery consultation. - Pt is seen by oncology/radiation oncology/nsg. -contemplation for craniotomy and resection of mass -await NSG decision. - cont supportive care. (2) Breast cancer Status: Acute Plan: - comgmt with Oncology. - per Oncology prefer pt have outpt staging with CT/PET scan (3) Atrial fibrillation, chronic Status: Chronic Plan: - amiodarone (4) Intracranial hemorrhage Status: Acute Trevor Umanzor MD Apr 01, 2017 11:51
--- NOTE | 2017-04-01 13:45 | PD.ONC.PN ---
Subjective Subjective Remarks Afebrile overnight Pt resting in bed watching TV in no acute distress. Anxious to know future plans Objective Data Date Time Temp Pulse Resp B/P Pulse Ox O2 Delivery O2 Flow Rate FiO2 04/01/17 08:00 96.5 98 18 135/93 97 04/01/17 08:00 98 Room Air 04/01/17 04:00 96.9 92 17 127/67 98 04/01/17 00:06 96.7 108 17 98/50 95 03/31/17 20:00 96.3 100 18 128/70 97 03/31/17 19:12 Room Air 03/31/17 18:00 93 03/31/17 17:31 98.3 94 20 122/80 93 03/31/17 16:30 98.3 94 20 122/80 93 03/31/17 16:30 94 03/31/17 14:00 91 Result Diagram: 04/01/17 0400 04/01/17 0400 Laboratory Results Laboratory Tests Test 04/01/17 04:00 White Blood Count 4.9 TH/MM3 Red Blood Count 3.37 MIL/MM3 Hemoglobin 10.7 GM/DL Hematocrit 31.1 % Mean Corpuscular Volume 92.4 FL Mean Corpuscular Hemoglobin 31.7 PG Mean Corpuscular Hemoglobin 34.3 % Concent Red Cell Distribution Width 26.7 % Platelet Count 233 TH/MM3 Mean Platelet Volume 6.5 FL Prothrombin Time 10.8 SEC Prothromb Time International 1.0 RATIO Ratio Activated Partial 26.7 SEC Thromboplast Time Fibrinogen 374 mg/dL Sodium Level 139 MEQ/L Potassium Level 4.5 MEQ/L Chloride Level 102 MEQ/L Carbon Dioxide Level 25.7 MEQ/L Anion Gap 11 MEQ/L Blood Urea Nitrogen 22 MG/DL Creatinine 0.85 MG/DL Estimat Glomerular Filtration 68 ML/MIN Rate Random Glucose 151 MG/DL Calcium Level 8.9 MG/DL Administered Medications Medications (Trade) Dose Ordered Sig/Cristofer Route PRN Reason Start Time Stop Time Status Last Admin Dose Admin Famotidine (Pepcid) 20 mg Q12HR PO 03/31/17 09:00 04/01/17 09:35 Chlorhexidine Gluconate (Chlorhexidine 2% Cloth) 3 pack Taper DAILY@04 TOP 03/31/17 04:00 03/27/18 03:59 03/31/17 05:48 Senna/Docusate Sodium (Lori-Colace) 1 tab BID PO 03/31/17 09:00 04/01/17 09:34 Dexamethasone Sodium Phosphate (Decadron Inj) 4 mg Q6HR IV PUSH 03/31/17 00:13 04/01/17 12:23 Hydralazine HCl (Apresoline Inj) 10 mg Q30M PRN IV PUSH sbp > 160 03/31/17 00:15 03/31/17 04:51 Oxycodone HCl (Roxicodone) 5 mg Q4H PRN PO pain 1-5 03/31/17 01:00 04/01/17 12:34 Amiodarone HCl (Cordarone) 200 mg DAILY PO 03/31/17 09:00 04/01/17 09:34 Pravastatin Sodium (Pravachol) 40 mg DAILY PO 03/31/17 09:00 04/01/17 09:34 Montelukast Sodium (Singulair) 10 mg HS PO 03/31/17 21:00 03/31/17 21:59 Levetriacetam (Keppra) 500 mg Q12HR PO 03/31/17 21:00 04/01/17 09:34 Objective Remarks GENERAL: Middle aged female resting in bed. She appears somewhat anxious. SKIN: Warm and dry. HEAD: Normocephalic. EYES: No injection or drainage. NECK: Supple, trachea midline. CARDIOVASCULAR: Regular rate and rhythm without murmurs. RESPIRATORY: Breath sounds equal bilaterally. No accessory muscle use. GASTROINTESTINAL: Abdomen soft, non-tender, nondistended. EXTREMITIES: No cyanosis, or edema. MUSCULOSKELETAL: Adequate muscle tone. NEUROLOGICAL: Equal spinner frame strengths. Normal speech. No obvious focal deficit. Assessment/Plan Problem List: (1) Intracranial hemorrhage Status: Acute Plan: -- XRT oncology and neurosurgery consulted -- May possibly be due to SE of Ibrance. -- CT the head showed multifocal intracranial hemorrhage -- Cerebral angiogram ruled out questionable aneurysm -- It is not yet clear if this is a response to treatment or metastatic disease Hx/[place]: Patient was originally diagnosed with a T1 N1 M0 breast cancer in 1992. 2009 she was diagnosed with recurrent disease in the chest wall. She was given external beam radiation at that time. Most recently she has been on Faslodex and Ibrance over the last three years. Assessment 61 y/o female with hx of breast cancer admitted with R arm weakness found to have a hemorrhage like mass in the brain Plan 1. Await consult from radiation oncology, neurosurgery 2. Continue steroids 3. Neuro checks 4. Supportive care. Attending Statement The exam, history, and the medical decision-making described in the above note were completed with the assistance of the mid-level provider. I reviewed and agree with the findings presented. I attest that I had a [id number] encounter with the patient on the same day, and personally performed and documented my assessment and findings in the medical record. Discussed w/ attending and rad onc. Concern about tumor/mets vs. hemorrhage vs. hemorrhagic mets. Difficult to explain finding as multiple areas of hemorrhage since platelets and coagulation factors are normal. Continue to hold Ibrance. Await consult from Rad Onc. Defer to NS if possible to safely biopsy. Diann Rice Apr 01, 2017 13:45 Shellie Coffman MD Apr 01, 2017 15:29
--- NOTE | 2017-04-01 15:14 | HHI.NSPN ---
History Chief Complaint: no complaints Interval History Patient is a 61-year-old female transferred from [facility] due to new onset of speech deficit and right hemiparesis. Patient has a history of recurrent breast cancer. Imaging studies thus far have revealed a left temporal lobe possible hemorrhagic lesion, well-circumscribed. Cerebral angiogram negative for aneurysm. Exam Results Vital Signs Date Time Temp Pulse Resp B/P Pulse Ox O2 Delivery O2 Flow Rate FiO2 04/01/17 08:00 96.5 98 18 135/93 97 04/01/17 08:00 Room Air 03/31/17 07:52 21 Intake and Output 03/31/17 03/31/17 04/01/17 08:00 16:00 00:00 Intake Total 480 ml 200 ml 240 ml Output Total 250 ml 300 ml Balance 230 ml -100 ml 240 ml Physical Examination Pleasant normally developed lady in no apparent distress during the examination Respirations clear and regular, non-labored Awake and alert Mild occasional word finding deficits Speech otherwise relatively fluent. Extraocular movements, visual angulo to confrontation, facial motor movements are intact. Sensation intact light touch all extremities Strength intact major flexion and extension groups all extremities Lab, Micro, Other Results Laboratory Tests Test 04/01/17 04:00 White Blood Count 4.9 TH/MM3 Red Blood Count 3.37 MIL/MM3 Hemoglobin 10.7 GM/DL Hematocrit 31.1 % Mean Corpuscular Volume 92.4 FL Mean Corpuscular Hemoglobin 31.7 PG Mean Corpuscular Hemoglobin 34.3 % Concent Red Cell Distribution Width 26.7 % Platelet Count 233 TH/MM3 Mean Platelet Volume 6.5 FL Prothrombin Time 10.8 SEC Prothromb Time International 1.0 RATIO Ratio Activated Partial 26.7 SEC Thromboplast Time Fibrinogen 374 mg/dL Sodium Level 139 MEQ/L Potassium Level 4.5 MEQ/L Chloride Level 102 MEQ/L Carbon Dioxide Level 25.7 MEQ/L Anion Gap 11 MEQ/L Blood Urea Nitrogen 22 MG/DL Creatinine 0.85 MG/DL Estimat Glomerular Filtration 68 ML/MIN Rate Random Glucose 151 MG/DL Calcium Level 8.9 MG/DL Medical Decision Making Impression and Plan Impression: Left temporal lobe lesion in patient with history of recurrent breast cancer. No definite aneurysm or vascular malformation on cerebral angiogram. Plan: Findings were discussed with the patient Anticipate need for stereotactic brain biopsy. Await further input from Dr. Corrales regarding surgical plans and timing. Ruiz Posadas MD Apr 01, 2017 15:14
[2017-04-01] MEDS: MONTELUKAST SODIUM 10 MG TAB PO SCH (22:11)
[2017-04-02] MEDS: DEXAMETHASONE SOD PHOS 4 MG/ML VIAL IV PUSH SCH ×4 (01:13→18:00)
[2017-04-02] MEDS: INSULIN NovoLIN REGULAR SUPPLEMENTAL SCALE SQ SCH ×5 (03:00→20:39)
[2017-04-02] MEDS: CHLORHEXIDINE GLUCONATE 2 % 1 PACK (2 CLOTHS) TOP SCH (03:22)
[2017-04-02 05:16] LABS: HEMATOCRIT 29.8 % (35.0-46.0); MEAN CELL VOLUME 91.9 FL (80.0-100.0); MEAN CORPUSCULAR HEMOGLOBIN 32.2 PG (27.0-34.0); PLATELET COUNT 205 TH/MM3 (150-450); RED BLOOD COUNT 3.24 MIL/MM3 (4.00-5.30); RED CELL DISTRIBUTION WIDTH 26.5 % (11.6-17.2); WHITE BLOOD COUNT 6.1 TH/MM3 (4.0-11.0)
[2017-04-02 05:19] LABS: REVIEW FLAG FINAL
[2017-04-02 05:46] LABS: BICARBONATE 24.7 MEQ/L (21.0-32.0); POTASSIUM 4.5 MEQ/L (3.5-5.1)
[2017-04-02 08:00] VITALS: BP 151/98; PULSE 92; RESP 16; TEMP 96; O2SAT 95
[2017-04-02] MEDS: FUROSEMIDE 20 MG TAB PO SCH (09:00)
[2017-04-02] MEDS: ESCITALOPRAM OXALATE 20 MG TAB PO SCH (09:00)
[2017-04-02] MEDS: DOCUSATE SODIUM 50 MG/SENNA 8.6 MG TAB PO SCH ×2 (09:52→20:37)
[2017-04-02] MEDS: PRAVASTATIN SOD 40 MG TAB PO SCH (09:52)
[2017-04-02] MEDS: AMIODARONE 200 MG TAB PO SCH (09:53)
[2017-04-02] MEDS: FAMOTIDINE 20 MG TAB PO SCH ×2 (09:53→20:37)
[2017-04-02] MEDS: levETIRAcetam 500 MG TAB PO SCH ×2 (09:53→20:36)
--- NOTE | 2017-04-02 10:44 | HHI.PR ---
Subjective Remarks still very anxious Objective Vitals heart reg lung cta abd s/nt ext no edema Vital Signs Date Time Temp Pulse Resp B/P Pulse Ox O2 Delivery O2 Flow Rate FiO2 04/02/17 08:00 96.0 92 16 151/98 95 04/02/17 07:25 18 04/02/17 01:38 Room Air 04/01/17 23:48 96.6 87 17 139/71 97 04/01/17 20:00 96.2 89 16 158/68 97 04/01/17 16:00 96.3 88 18 137/79 99 04/01/17 12:00 96.1 93 18 153/81 97 04/01/17 04/01/17 04/02/17 15:00 23:00 07:00 Intake Total 1200 ml 480 ml Balance 1200 ml 480 ml Intake Oral 1200 ml 480 ml # Voids 8 2 # Bowel Movements 0 Result Diagram: 04/02/17 0506 04/02/17 0506 A/P Problem List: (1) Intracranial mass Status: Acute Plan: This is a 61-year-old female transferred from outside hospital. She originally presented to the outside facility with right-sided weakness and difficulty speaking. She was brought in by her family. CT head at the outside hospital demonstrated a left temporal mass with associated edema and intraparenchymal hemorrhage. She was transferred emergently to our facility for neurosurgery consultation. concern for metastatic breast ca to brain with hemorrhage - Pt is seen by oncology/radiation oncology/nsg. -contemplation for craniotomy and resection of mass -await NSG decision. - cont supportive care. (2) Intracranial hemorrhage Status: Acute (3) Breast cancer Status: Acute Plan: - comgmt with Oncology. - per Oncology prefer pt have outpt staging with CT/PET scan (4) Atrial fibrillation, chronic Status: Chronic Plan: - amiodarone Trevor Umanzor MD Apr 02, 2017 10:44
--- NOTE | 2017-04-02 11:22 | PD.ONC.PN ---
Subjective Subjective Remarks Patient states she did not sleep well last night Ready to proceed with brain biopsy No other acute complaints Objective Data Date Time Temp Pulse Resp B/P Pulse Ox O2 Delivery O2 Flow Rate FiO2 04/02/17 08:00 96.0 92 16 151/98 95 04/02/17 07:25 18 04/02/17 01:38 Room Air 04/01/17 23:48 96.6 87 17 139/71 97 04/01/17 20:00 96.2 89 16 158/68 97 04/01/17 16:00 96.3 88 18 137/79 99 04/01/17 12:00 96.1 93 18 153/81 97 04/02/17 04/02/17 04/02/17 07:00 15:00 23:00 Intake Total 480 ml Balance 480 ml Result Diagram: 04/02/17 0506 04/02/17 0506 Laboratory Results Laboratory Tests Test 04/02/17 05:06 White Blood Count 6.1 TH/MM3 Red Blood Count 3.24 MIL/MM3 Hemoglobin 10.4 GM/DL Hematocrit 29.8 % Mean Corpuscular Volume 91.9 FL Mean Corpuscular Hemoglobin 32.2 PG Mean Corpuscular Hemoglobin 35.0 % Concent Red Cell Distribution Width 26.5 % Platelet Count 205 TH/MM3 Mean Platelet Volume 6.9 FL Sodium Level 138 MEQ/L Potassium Level 4.5 MEQ/L Chloride Level 104 MEQ/L Carbon Dioxide Level 24.7 MEQ/L Anion Gap 9 MEQ/L Blood Urea Nitrogen 22 MG/DL Creatinine 0.79 MG/DL Estimat Glomerular Filtration 74 ML/MIN Rate Random Glucose 148 MG/DL Calcium Level 8.7 MG/DL Administered Medications Medications (Trade) Dose Ordered Sig/Cristofer Route PRN Reason Start Time Stop Time Status Last Admin Dose Admin Famotidine (Pepcid) 20 mg Q12HR PO 03/31/17 09:00 04/02/17 09:53 Chlorhexidine Gluconate (Chlorhexidine 2% Cloth) 3 pack Taper DAILY@04 TOP 03/31/17 04:00 03/27/18 03:59 03/31/17 05:48 Senna/Docusate Sodium (Lori-Colace) 1 tab BID PO 03/31/17 09:00 04/02/17 09:52 Dexamethasone Sodium Phosphate (Decadron Inj) 4 mg Q6HR IV PUSH 8/11/17 00:13 04/02/17 06:19 Hydralazine HCl (Apresoline Inj) 10 mg Q30M PRN IV PUSH sbp > 160 03/31/17 00:15 03/31/17 04:51 Oxycodone HCl (Roxicodone) 5 mg Q4H PRN PO pain 1-5 03/31/17 01:00 04/02/17 10:10 Amiodarone HCl (Cordarone) 200 mg DAILY PO 03/31/17 09:00 04/02/17 09:53 Pravastatin Sodium (Pravachol) 40 mg DAILY PO 03/31/17 09:00 04/02/17 09:52 Montelukast Sodium (Singulair) 10 mg HS PO 03/31/17 21:00 04/01/17 22:11 Levetriacetam (Keppra) 500 mg Q12HR PO 03/31/17 21:00 04/02/17 09:53 Objective Remarks GENERAL: Middle aged female resting in bed with eyes closed. She awakens easily to verbal stimuli. SKIN: Warm and dry. HEAD: Normocephalic. EYES: No injection or drainage. NECK: Supple, trachea midline. CARDIOVASCULAR: Regular rate and rhythm without murmurs. RESPIRATORY: Breath sounds equal bilaterally. No accessory muscle use. GASTROINTESTINAL: Abdomen soft, non-tender, nondistended. EXTREMITIES: No cyanosis, or edema. MUSCULOSKELETAL: Adequate muscle tone. NEUROLOGICAL: Equal soap mixer strengths. Normal speech. No obvious focal deficit. Assessment/Plan Problem List: (1) Intracranial hemorrhage Status: Acute Plan: -- XRT oncology consulted -- Neurosurgery following -- May possibly be due to SE of Ibrance. -- CT the head showed multifocal intracranial hemorrhage -- Cerebral angiogram ruled out questionable aneurysm -- It is not yet clear if this is a response to treatment or metastatic disease Hx/[place]: Patient was originally diagnosed with a T1 N1 M0 breast cancer in 1992. 2009 she was diagnosed with recurrent disease in the chest wall. She was given external beam radiation at that time. Most recently she has been on Faslodex and Ibrance over the last three years. Assessment 61 y/o female with hx of breast cancer admitted with R arm weakness found to have a hemorrhage like mass in the brain Plan 1. Per neurosurgery, patient will have stereotactic brain biopsy 2. Continue steroids 3. Continue to hold Ibrance for now 4. Await radiation oncology consult Attending Statement The exam, history, and the medical decision-making described in the above note were completed with the assistance of the mid-level provider. I reviewed and agree with the findings presented. I attest that I had a [id number] encounter with the patient on the same day, and personally performed and documented my assessment and findings in the medical record. Pt seen and examined. Discussed plans for evacuation of hematoma/biopsy by Dr. Corrales to determine if MEDICAL ASSISTANT PER DIEM met vs. hemorrhage. Defer CT scan CAP, prefer to continue with out pt staging CT/PET scan. Dr. López to resume care on Monday. Diann Rice Apr 02, 2017 11:22 Shellie Coffman MD Apr 02, 2017 12:20
[2017-04-02 12:00] VITALS: BP 158/86; PULSE 85; RESP 16; TEMP 96.2; O2SAT 95
--- NOTE | 2017-04-02 12:19 | HHI.NSPN ---
History Chief Complaint: no complaints Interval History Patient is a 61-year-old female transferred from [facility] due to new onset of speech deficit and right hemiparesis. Patient has a history of recurrent breast cancer. Imaging studies thus far have revealed a left temporal lobe possible hemorrhagic lesion, well-circumscribed. Cerebral angiogram negative for aneurysm. Exam Results Vital Signs Date Time Temp Pulse Resp B/P Pulse Ox O2 Delivery O2 Flow Rate FiO2 04/02/17 08:00 96.0 92 16 151/98 95 04/02/17 01:38 Room Air 03/31/17 07:52 21 Intake and Output 04/01/17 04/01/17 04/02/17 08:00 16:00 00:00 Intake Total 240 ml 720 ml 480 ml Balance 240 ml 720 ml 480 ml Physical Examination Pleasant normally developed lady in no apparent distress during the examination Respirations clear and regular, non-labored Awake and alert Speech is clear and fluent this morning. No significant word finding or naming deficit. Extraocular movements, visual angulo to confrontation, facial motor movements are intact. Sensation intact light touch all extremities Strength intact major flexion and extension groups all extremities Lab, Micro, Other Results Laboratory Tests Test 04/02/17 05:06 White Blood Count 6.1 TH/MM3 Red Blood Count 3.24 MIL/MM3 Hemoglobin 10.4 GM/DL Hematocrit 29.8 % Mean Corpuscular Volume 91.9 FL Mean Corpuscular Hemoglobin 32.2 PG Mean Corpuscular Hemoglobin 35.0 % Concent Red Cell Distribution Width 26.5 % Platelet Count 205 TH/MM3 Mean Platelet Volume 6.9 FL Sodium Level 138 MEQ/L Potassium Level 4.5 MEQ/L Chloride Level 104 MEQ/L Carbon Dioxide Level 24.7 MEQ/L Anion Gap 9 MEQ/L Blood Urea Nitrogen 22 MG/DL Creatinine 0.79 MG/DL Estimat Glomerular Filtration 74 ML/MIN Rate Random Glucose 148 MG/DL Calcium Level 8.7 MG/DL Medical Decision Making Impression and Plan Impression: Left temporal lobe lesion in patient with history of recurrent breast cancer. No definite aneurysm or vascular malformation on cerebral angiogram. Plan: Findings were discussed with the patient Anticipate need for stereotactic brain biopsy. Discussed with the patient as well as with Dr Corrales. Stereotactic brain biopsy tentatively planned for Monday04/04/17. Ruiz Posadas MD Apr 02, 2017 12:19
--- NOTE | 2017-04-02 14:09 | RADRPT ---
EXAM DATE/TIME: 04/02/2017 13:56 [facility] COMPARISON: CHEST SINGLE AP, June 01, 2014, 11:27. INDICATIONS : Shortness of breath with dizziness and lightheaded. MEDICAL HISTORY : Hepatic adenomas. Carcinoma, breast. Carcinoma, L2 and T6. SURGICAL HISTORY : Mitral valve repair. Axillary lymph node removal, right. Hepatic adenoma removal. ENCOUNTER: Initial ACUITY: 3 days PAIN SCORE: 0/10 LOCATION: Bilateral chest FINDINGS: Left chest port is present good position. There surgical clips over the right upper quadrant of the a bdomen and in the right axillary region. There has been interval sternotomy with valve replacement an d placement of a left atrial appendage clip. The lungs are focally clear. No pleural effusion is iden tified. Cardiomediastinal contours are satisfactory for technique and projection. CONCLUSION: No acute disease Van Banks MD on April 02, 2017 at 14:06 Board Certified Radiologist. This report was verified electronically.
[2017-04-02 16:00] VITALS: BP 153/86; PULSE 86; RESP 16; TEMP 96.7; O2SAT 98
[2017-04-02 19:00] VITALS: BP 151/78; PULSE 83; RESP 17; TEMP 96.6; O2SAT 96
[2017-04-02] MEDS: MONTELUKAST SODIUM 10 MG TAB PO SCH (20:36)
[2017-04-02] MEDS: MAGNESIUM HYDROXIDE SUSP 30 ML CUP PO PRN (20:38)
[2017-04-03] VITALS: BP 151/77; PULSE 84; RESP 16; TEMP 96.5; O2SAT 96
[2017-04-03] MEDS: DEXAMETHASONE SOD PHOS 4 MG/ML VIAL IV PUSH SCH ×5 (01:03→23:38)
[2017-04-03] MEDS: INSULIN NovoLIN REGULAR SUPPLEMENTAL SCALE SQ SCH ×5 (03:00→21:37)
[2017-04-03] MEDS: CHLORHEXIDINE GLUCONATE 2 % 1 PACK (2 CLOTHS) TOP SCH (03:02)
[2017-04-03 07:21] LABS: HEMATOCRIT 33.1 % (35.0-46.0); MEAN CELL VOLUME 91.9 FL (80.0-100.0); MEAN CORPUSCULAR HEMOGLOBIN 31.7 PG (27.0-34.0); MEAN CORPUSCULAR HGB CONC 34.6 % (32.0-36.0); PLATELET COUNT 225 TH/MM3 (150-450); RED CELL DISTRIBUTION WIDTH 26.5 % (11.6-17.2); WHITE BLOOD COUNT 5.7 TH/MM3 (4.0-11.0)
[2017-04-03 07:25] LABS: REVIEW FLAG FINAL
[2017-04-03 07:46] LABS: BICARBONATE 26.6 MEQ/L (21.0-32.0); POTASSIUM 4.2 MEQ/L (3.5-5.1)
[2017-04-03 08:00] VITALS: BP 158/97; PULSE 91; RESP 18; TEMP 95.6; O2SAT 97
[2017-04-03] MEDS: ESCITALOPRAM OXALATE 20 MG TAB PO SCH (09:00)
[2017-04-03] MEDS: FUROSEMIDE 20 MG TAB PO SCH (09:00)
[2017-04-03] MEDS: levETIRAcetam 500 MG TAB PO SCH ×2 (09:08→21:23)
[2017-04-03] MEDS: MAGNESIUM HYDROXIDE SUSP 30 ML CUP PO PRN (09:10)
[2017-04-03] MEDS: DOCUSATE SODIUM 50 MG/SENNA 8.6 MG TAB PO SCH ×2 (09:10→21:24)
[2017-04-03] MEDS: FAMOTIDINE 20 MG TAB PO SCH ×2 (09:10→21:23)
[2017-04-03] MEDS: PRAVASTATIN SOD 40 MG TAB PO SCH (09:10)
[2017-04-03] MEDS: AMIODARONE 200 MG TAB PO SCH (09:12)
[2017-04-03 12:00] VITALS: BP 144/85; PULSE 85; RESP 19; TEMP 95.8; O2SAT 97
[2017-04-03] MEDS ORDERED: VANCOMYCIN INJ 1,000 MG in SODIUM CHLOR 0.9% 250 ML INJ 250 ML IV SCH (13:45)
--- NOTE | 2017-04-03 14:00 | HHI.NSPN ---
(Ev William) Note Status Status: Progress Note (Ev William) Interval History Interval History This is a 61-year-old female transferred from [facility]. She presented to the outside facility with right-sided weakness and difficulty speaking. She was brought to the emergency room by her family. CT head at the outside hospital demonstrated a left temporal mass with associated edema and intraparenchymal hemorrhage. She was transferred emergently to [place]. All of her symptoms have resolved. She denies headache, weakness, numbness, speech problems currently. Denies chest pain, fever, chills, shortness of breath. She has history of breast cancer with metastases. Denies any incontinence of stool or urinary retention. Neurosurgical consultation was requested 04/03: cerebral angio shows hemorrhagic mass without evidence of aneurysm. remained clinically stable over the weekend. to OR tomorrow for biopsy/poss resection (Ev William) Labs, Micro, & Vital Signs Results Date Time Temp Pulse Resp B/P Pulse Ox O2 Delivery O2 Flow Rate FiO2 04/03/17 12:00 95.8 85 19 144/85 97 04/03/17 10:30 18 04/03/17 08:00 95.6 91 18 158/97 97 04/03/17 03:32 Room Air 04/03/17 00:00 96.5 84 16 151/77 96 04/02/17 19:00 96.6 83 17 151/78 96 04/02/17 16:00 96.7 86 16 153/86 98 04/03/17 06:59 Intake Total 1080 ml Balance 1080 ml Constitutional Vital Signs Date Time Temp Pulse Resp B/P Pulse Ox O2 Delivery O2 Flow Rate FiO2 04/03/17 12:00 95.8 85 19 144/85 97 04/03/17 10:30 18 04/03/17 08:00 95.6 91 18 158/97 97 04/03/17 03:32 Room Air 04/03/17 00:00 96.5 84 16 151/77 96 04/02/17 19:00 96.6 83 17 151/78 96 04/02/17 16:00 96.7 86 16 153/86 98 04/03/17 06:59 Intake Total 1080 ml Balance 1080 ml (Ev William) Review of Systems/Exam Exam Awake, alert. Speech is fluent. Conversing well. Follows commands without difficulties. CN: pupils equal, extraocular movements intact, facial motor symmetrical Sensation intact light touch all extremities Motor: moves all four extremities well Neck: soft, supple (Ev William) Medications Current Medications Current Medications Medications (Trade) Dose Ordered Sig/Cristofer Route PRN Reason Start Time Stop Time Status Last Admin Dose Admin Dextrose (D50w (Vial) Inj) 25 ml UNSCH PRN IV PUSH HYPOGLYCEMIA-SEE COMMENTS 03/31/17 00:15 Famotidine (Pepcid) 20 mg Q12HR PO 03/31/17 09:00 04/03/17 09:10 Ondansetron HCl (Zofran Inj) 4 mg Q6H PRN IV NAUSEA OR VOMITING 03/31/17 00:15 Miscellaneous Information 1 Q361D XX 03/31/17 00:15 Chlorhexidine Gluconate (Chlorhexidine 2% Cloth) 3 pack Taper DAILY@04 TOP 03/31/17 04:00 03/27/18 03:59 03/31/17 05:48 Chlorhexidine Gluconate (Chlorhexidine 2% Cloth) 3 pack UNSCH PRN TOP HYGIENIC CARE 03/31/17 00:15 Senna/Docusate Sodium (Lori-Colace) 1 tab BID PO 03/31/17 09:00 04/03/17 09:10 Dexamethasone Sodium Phosphate 4 mg 4 mg Q6HR IV PUSH 03/31/17 00:13 04/03/17 05:42 Nicardipine HCl/ Sodium Chloride (Cardene Inj/NS 250 ml Inj) 260 ml @ 0 mls/hr TITRATE IV 03/31/17 00:15 Labetalol HCl (Trandate Inj) 20 mg Q15M PRN IV PUSH sbp > 160 03/31/17 00:15 Hydralazine HCl (Apresoline Inj) 10 mg Q30M PRN IV PUSH sbp > 160 03/31/17 00:15 03/31/17 04:51 Oxycodone HCl (Roxicodone) 5 mg Q4H PRN PO pain 1-5 03/31/17 01:00 04/03/17 09:09 Amiodarone HCl (Cordarone) 200 mg DAILY PO 03/31/17 09:00 04/03/17 09:12 Escitalopram Oxalate (Lexapro) 20 mg DAILY PO 03/31/17 09:00 Furosemide (Lasix) 20 mg DAILY PO 03/31/17 09:00 Pravastatin Sodium (Pravachol) 40 mg DAILY PO 03/31/17 09:00 04/03/17 09:10 Montelukast Sodium (Singulair) 10 mg HS PO 03/31/17 21:00 04/02/17 20:36 Levetriacetam (Keppra) 500 mg Q12HR PO 03/31/17 21:00 04/03/17 09:08 Magnesium Hydroxide 30 ml 30 ml DAILY PRN PO constipation 04/02/17 12:45 04/03/17 09:10 Sodium Chloride (NS 1000 ml Inj) 1,000 ml @ 100 mls/hr Q10H IV 04/03/17 23:00 Chlorhexidine Gluconate (Hibiclens 4% Top Soln) 1 applic HS TOP 04/03/17 21:00 04/04/17 21:01 (Ev William) Medical Decision Making MDM Remarks 61 y/o female presented with episode of aphasia and right side weakness, probable seizures, initial studies with MRI/MRA suspected giant aneurysm cerebral angiogram shows hemorrhagic mass, no evidence of aneurysm (Ev William) Plan Plan Remarks to OR tomorrow for biopsy with possible resection of hemorrhagic mass, NPO tonight, SCDs and TEDs for dvt prophylaxis consents in chart Dr. Corrales dw patient in detail regarding surgery (Ev William) Attending Statement Neuro. Continue neuro checks in a serial fashion. CT of the brain today is stable. Suspect metastatic carncer. I Recommend a surgical decompression with resection of the hemorrhagic mass. I have discussed the details including the step-by- step details of the surgical procedure, its indications, alternatives, risks, and potential complications. Risks and potential complications include, but are not limited to, infection, blood loss, CSF leak, partial or complete loss of sight in one or both eyes, paresis, paralysis, permanent pain or difficulty swallowing, loss of bowel or bladder function, complications from anesthesia, blood clot, stroke, myocardial infarction, or even . Radiation oncology. Dr Beal has been consulted Respiratory failure. Continue pulmonary toilette, nasotracheal suction, and breathing treatments with nebulizers. Daily PT and OT Nutrition. NPO after midnight Renal. monitor closely urine output, BUN and creatinine Endocrine. Monitor serial Acu checks and SSI as needed ID monitor for signs of infection Protonix for stress ulcer prophylaxis The exam, history, and the medical decision-making described in the above note were completed with the assistance of the mid-level provider. I reviewed and agree with the findings presented. I attest that I had a [id number] encounter with the patient on the same day, and personally performed and documented my assessment and findings in the medical record. (Jorge Alberto Corrales MD) Ev William Apr 03, 2017 14:00 Jorge Alberto Corrales MD Apr 16, 2017 17:42
--- NOTE | 2017-04-03 15:31 | HHI.PR ---
Subjective Remarks No new complaints. Objective Vitals Vital Signs Date Time Temp Pulse Resp B/P Pulse Ox O2 Delivery O2 Flow Rate FiO2 04/03/17 12:00 95.8 85 19 144/85 97 04/03/17 10:30 18 04/03/17 08:00 95.6 91 18 158/97 97 04/03/17 03:32 Room Air 04/03/17 00:00 96.5 84 16 151/77 96 04/02/17 19:00 96.6 83 17 151/78 96 04/02/17 16:00 96.7 86 16 153/86 98 04/02/17 04/02/17 04/03/17 14:59 22:59 06:59 Intake Total 600 ml 480 ml Balance 600 ml 480 ml Intake Oral 600 ml 480 ml # Voids 4 3 # Bowel Movements 0 0 Result Diagram: 04/03/17 0656 04/03/17 0656 Imaging Last Impressions Chest X-Ray 04/02/17 0000 Signed Impressions: Service Date/Time: Sunday, April 02, 2017 13:56 - CONCLUSION: No acute disease Van Banks MD Head CT 03/31/17 0600 Signed Impressions: Service Date/Time: Friday, March 31, 2017 05:07 - CONCLUSION: Multifocal intracranial hemorrhage as above including a masslike area of parenchymal hemorrhage of the left temporal and parietal lobes with about 6 mm of rightward midline shift. Van Orlando MD Head Magnetic Resonance Angiography 03/31/17 0000 Signed Impressions: Service Date/Time: Friday, March 31, 2017 09:27 - CONCLUSION: 1. No evidence of aneurysm or significant vasculopathy. 2. Significant mass effect on the middle cerebral artery vessels from the large left temporal lobe hematoma. 3. Review of MRI demonstrates small focal magnetic susceptibility lesions with enhancement. Hemorrhagic metastatic deposits versus small vascular malformations with chronic hemorrhage should be considered as possible etiologies. Amyloid angiopathy although less likely also needs to be considered. Harlan Richey MD Cerebral Arteriogram 03/31/17 0000 Signed Impressions: Service Date/Time: Friday, March 31, 2017 15:15 - CONCLUSION: 1. No aneurysmal disease. 2. Displacement of the inferior branches of the left MCA territory secondary to the masslike parenchymal hemorrhage in the left temporal lobe. Dante Rollins MD Brain MRI 03/31/17 0000 Signed Impressions: Service Date/Time: Friday, March 31, 2017 09:27 - CONCLUSION: 1. 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 2. Associated 4 mm left to right subfalcine shift. 3. Nonspecific areas of punctate enhancement in the right occiput and tracking along the left tentorium as well as adjacent to the falx in the anterior left high parietal convexity. I do not believe the signal is characteristic of hemorrhage and would consider possible metastatic deposits. Patient does have a history of breast cancer. Dante Rollins MD ADDENDUM: Also noted, on susceptibility weighted imaging, all the areas described above show marked susceptibility artifact characteristic of some degree of hemosiderin. Again, these could represent small metastatic deposits or punctate vascular malformations which have intermittently bled in the past. These areas were not on the prior MRI of the brain report aren't imaging 07-18-2012. Dante Rollins MD Objective Remarks GENERAL: This is a well-nourished, well-developed patient, in no apparent distress. CARDIOVASCULAR: Regular rate and rhythm without murmurs, gallops, or rubs. RESPIRATORY: Clear to auscultation. Breath sounds equal bilaterally. No wheezes , rales, or rhonchi. GASTROINTESTINAL: Abdomen soft, non-tender, nondistended. Normal active bowel sounds MUSCULOSKELETAL: Extremities without clubbing, cyanosis, or edema. NEURO: Alert & Oriented x4 to person, place, time, situation. Moves all ext x4 A/P Problem List: (1) Intracranial mass Status: Acute Plan: - comgmt with Neurosurgery and Oncology - pt to undergo stereotactic brain bx with Neurosurgery, Dr. Corrales 04/04 - roxicodonyonatan martinez keppra (2) Breast cancer Status: Acute Plan: - comgmt with Oncology. - per Oncology prefer pt have outpt staging with CT/PET scan (3) Atrial fibrillation, chronic Status: Chronic Plan: - amiodarone Nigel Hagen DO Apr 03, 2017 15:31
[2017-04-03 16:00] VITALS: BP 152/93; PULSE 80; RESP 18; TEMP 96.2; O2SAT 96
--- NOTE | 2017-04-03 19:09 | PD.ONC.PN ---
Subjective Subjective Remarks Patient seen and examined, imaging studies, vital signs, labs, medications, neurosurgery notes were all reviewed. Subjectively; the patient reports continued expressive aphasia, weakness and numbness of her right arm and right leg. She also reports changes in her hearing. She is scheduled to undergo surgery tomorrow for evacuation of the intracranial hemorrhage as well as biopsy of suspected mass. Objective Data Date Time Temp Pulse Resp B/P Pulse Ox O2 Delivery O2 Flow Rate FiO2 04/03/17 16:00 96.2 80 18 152/93 96 04/03/17 15:30 18 04/03/17 12:00 95.8 85 19 144/85 97 04/03/17 08:00 95.6 91 18 158/97 97 04/03/17 03:32 Room Air 04/03/17 00:00 96.5 84 16 151/77 96 04/03/17 04/03/17 04/03/17 07:00 15:00 23:00 Intake Total 960 ml Balance 960 ml Result Diagram: 04/03/17 0656 04/03/17 0656 Laboratory Results Laboratory Tests Test 04/03/17 06:56 White Blood Count 5.7 TH/MM3 Red Blood Count 3.60 MIL/MM3 Hemoglobin 11.4 GM/DL Hematocrit 33.1 % Mean Corpuscular Volume 91.9 FL Mean Corpuscular Hemoglobin 31.7 PG Mean Corpuscular Hemoglobin 34.6 % Concent Red Cell Distribution Width 26.5 % Platelet Count 225 TH/MM3 Mean Platelet Volume 6.7 FL Sodium Level 136 MEQ/L Potassium Level 4.2 MEQ/L Chloride Level 99 MEQ/L Carbon Dioxide Level 26.6 MEQ/L Anion Gap 10 MEQ/L Blood Urea Nitrogen 24 MG/DL Creatinine 0.73 MG/DL Estimat Glomerular Filtration 82 ML/MIN Rate Random Glucose 171 MG/DL Calcium Level 8.4 MG/DL Administered Medications Medications (Trade) Dose Ordered Sig/Cristofer Route PRN Reason Start Time Stop Time Status Last Admin Dose Admin Famotidine (Pepcid) 20 mg Q12HR PO 03/31/17 09:00 04/03/17 09:10 Chlorhexidine Gluconate (Chlorhexidine 2% Cloth) 3 pack Taper DAILY@04 TOP 03/31/17 04:00 03/27/18 03:59 03/31/17 05:48 Senna/Docusate Sodium (Lori-Colace) 1 tab BID PO 03/31/17 09:00 04/03/17 09:10 Dexamethasone Sodium Phosphate (Decadron Inj) 4 mg Q6HR IV PUSH 03/31/17 00:13 04/03/17 17:49 Hydralazine HCl (Apresoline Inj) 10 mg Q30M PRN IV PUSH sbp > 160 03/31/17 00:15 03/31/17 04:51 Oxycodone HCl (Roxicodone) 5 mg Q4H PRN PO pain 1-5 03/31/17 01:00 04/03/17 17:49 Amiodarone HCl (Cordarone) 200 mg DAILY PO 03/31/17 09:00 04/03/17 09:12 Pravastatin Sodium (Pravachol) 40 mg DAILY PO 03/31/17 09:00 04/03/17 09:10 Montelukast Sodium (Singulair) 10 mg HS PO 03/31/17 21:00 04/02/17 20:36 Levetriacetam (Keppra) 500 mg Q12HR PO 03/31/17 21:00 04/03/17 09:08 Magnesium Hydroxide (Milk Of Magnesia Liq) 30 ml DAILY PRN PO constipation 04/02/17 12:45 04/03/17 09:10 Objective Remarks GENERAL: Well-nourished, well-developed patient. Middle-aged lady, sitting up in bed, not apparently distressed. Stepdaughter at bedside SKIN: Warm and dry. HEAD: Normocephalic. EYES: No scleral icterus. No injection or drainage. NECK: Supple, trachea midline. No JVD or lymphadenopathy. LYMPHATIC: No adenopathy. CARDIOVASCULAR: Regular rate and rhythm without murmurs. RESPIRATORY: Breath sounds equal bilaterally. No accessory muscle use. GASTROINTESTINAL: Abdomen soft, non-tender, nondistended. EXTREMITIES: No cyanosis, or edema. MUSCULOSKELETAL: Adequate muscle tone. NEUROLOGICAL: Expressive aphasia, decreased motor strength of the right upper extremity and right lower extremity. PSYCHIATRIC: Appropriate mood and affect; insight and judgment normal. Assessment/Plan Problem List: (1) Intracranial hemorrhage Status: Acute Plan: -- XRT oncology consulted -- Neurosurgery following -- May possibly be due to SE of Ibrance. -- CT the head showed multifocal intracranial hemorrhage -- Cerebral angiogram ruled out questionable aneurysm -- It is not yet clear if this is a response to treatment or metastatic disease Hx/[place]: Patient was originally diagnosed with a T1 N1 M0 breast cancer in 1992. 2009 she was diagnosed with recurrent disease in the chest wall. She was given external beam radiation at that time. Most recently she has been on Faslodex and Ibrance over the last three years. Assessment 61-year-old female with a long-standing history of metastatic breast carcinoma, her disease is estrogen and progesterone receptor positive and HER-2 negative. She had been on palliative systemic therapy with Ibrance and/Faslodex. Her disease had been stable based on restaging imaging scans. She presented acutely with symptoms of auditory hallucinations, confusion, weakness of the right upper and lower extremities and expressive aphasia. Imaging studies of the brain indicated an intracranial hemorrhage in the territory of the left MCA territory , there appeared to be an associated mass ; likely metastatic carcinoma in the vicinity. The patient is scheduled to undergo craniotomy with evacuation of the bleed as well as sampling of any underlying masses identified during surgery. Plan 1. Per neurosurgery, patient will have stereotactic brain biopsy. I will talk to neurosurgery about placement of an Ommaya reservoir should she be found to have metastatic disease for eventual intrathecal chemotherapy injections. 2. Continue steroids 3. Hold Ibrance. Lui López MD Apr 03, 2017 19:09
[2017-04-03 20:15] VITALS: BP 149/83; PULSE 87; RESP 16; TEMP 97.1; O2SAT 98
[2017-04-03] MEDS: MONTELUKAST SODIUM 10 MG TAB PO SCH (21:23)
[2017-04-03] MEDS: CHLORHEXIDINE GLUCONATE 4% SOLN 120 ML BTL TOP SCH (22:13)
[2017-04-03] MEDS ORDERED: SODIUM CHLOR 0.9% 1000 ML INJ 1,000 ML IV SCH (23:00)
[2017-04-03] MEDS ORDERED: SODIUM CHLORID 0.9% 500 ML IV PRN (23:45)
[2017-04-03] MEDS ORDERED: LACTATED RINGER'S 1000 ML IV PRN (23:45)
[2017-04-03] MEDS ORDERED: POVIDONE IODINE 5% (ANTISEPSIS KIT) 4 APPLICATIONS EACH NARE PRN (23:45)
[2017-04-03] MEDS ORDERED: CHLORHEXIDINE GLUCONATE 2 % 1 PACK (2 CLOTHS) TOPICAL PRN (23:45)
[2017-04-03 23:50] VITALS: BP 152/87; PULSE 86; RESP 18; TEMP 97.4; O2SAT 97
[2017-04-04] MEDS: CHLORHEXIDINE GLUCONATE 2 % 1 PACK (2 CLOTHS) TOP SCH (03:21)
[2017-04-04] MEDS: INSULIN NovoLIN REGULAR SUPPLEMENTAL SCALE SQ SCH ×5 (03:29→21:00)
[2017-04-04 04:10] VITALS: BP 148/91; PULSE 83; RESP 17; TEMP 97.4; O2SAT 96
[2017-04-04] MEDS: DEXAMETHASONE SOD PHOS 4 MG/ML VIAL IV PUSH SCH ×4 (06:02→21:33)
[2017-04-04 07:03] LABS: HEMATOCRIT 35.6 % (35.0-46.0); MEAN CELL VOLUME 92.3 FL (80.0-100.0); MEAN CORPUSCULAR HEMOGLOBIN 31.4 PG (27.0-34.0); MEAN CORPUSCULAR HGB CONC 34.1 % (32.0-36.0); PLATELET COUNT 246 TH/MM3 (150-450); RED BLOOD COUNT 3.86 MIL/MM3 (4.00-5.30); RED CELL DISTRIBUTION WIDTH 26.4 % (11.6-17.2); WHITE BLOOD COUNT 5.5 TH/MM3 (4.0-11.0)
[2017-04-04 07:08] LABS: REVIEW FLAG FINAL
[2017-04-04 07:20] VITALS: BP 152/96; PULSE 89; RESP 18; TEMP 95.5; O2SAT 97
[2017-04-04] MEDS ORDERED: MICROFIBRILLAR COLLAGEN HEMOSTAT 70 X 35 MM BANDAGE ONE (07:32)
[2017-04-04] MEDS ORDERED: THROMBIN (TOPICAL) 5,000 UNIT VIAL ONE (07:32)
[2017-04-04] MEDS ORDERED: ceFAZolin 2 GM PREMIX 50 ML ONE (07:32)
[2017-04-04] MEDS ORDERED: MANNITOL INJ 50 ML ONE (07:33)
[2017-04-04] MEDS ORDERED: GENTAMICIN SULFATE 80 MG/2 ML VIAL ONE (07:33)
[2017-04-04] MEDS ORDERED: levETIRAcetam 500 MG/5 ML VIAL IV ONE (07:33)
[2017-04-04] MEDS ORDERED: BACITRACIN TOP OINT 15 GM TUBE ONE (07:33)
[2017-04-04] MEDS ORDERED: GELFOAM SIZE 100 ONE (07:33)
[2017-04-04] MEDS ORDERED: FUROSEMIDE 40 MG/4 ML VIAL ONE (07:33)
[2017-04-04] MEDS ORDERED: LIDOCAINE 1%/EPINEPHrine 1:100,000 SOLN 20 ML VIAL ONE (07:33)
[2017-04-04 07:36] LABS: BICARBONATE 26.2 MEQ/L (21.0-32.0); POTASSIUM 4.2 MEQ/L (3.5-5.1)
[2017-04-04] MEDS ORDERED: fentaNYL CITRATE 250 MCG/5 ML AMP ONE (08:15)
[2017-04-04] MEDS ORDERED: MIDAZOLAM HCL 2 MG/2 ML VIAL ONE (08:15)
[2017-04-04] MEDS ORDERED: ACETAMINOPHEN 1000 MG/100 ML VIAL IV ONE (08:16)
[2017-04-04] MEDS ORDERED: ARTIFICIAL TEARS OPTH OINT 3.5 APPLIC/3.5 GM TUBO ONE (08:16)
[2017-04-04] MEDS: AMIODARONE 200 MG TAB PO SCH (09:00)
[2017-04-04] MEDS: PRAVASTATIN SOD 40 MG TAB PO SCH (09:00)
[2017-04-04] MEDS: DOCUSATE SODIUM 50 MG/SENNA 8.6 MG TAB PO SCH ×2 (09:00→21:00)
--- NOTE | 2017-04-04 09:49 | EKG ---
Date Performed: 04/04/2017 Time Performed: 06:14:06 PTAGE: 61 years EKG: Sinus rhythm with multifocal PVCs Lateral T changes are nonspecific Abnormal ECG Compared to the previous tracing PVCs and T-wave changes are present. NO PREVIOUS TRACING DOCTOR: Eduardo Garza Interpretating Date/Time 04/04/2017 09:47:41
[2017-04-04] MEDS: levETIRAcetam 500 MG TAB PO SCH (10:00)
--- NOTE | 2017-04-04 11:11 | RC ---
cc: NAPOLEON BEAL MD DATE OF SERVICE: 04/01/2017 HISTORY OF PRESENT ILLNESS Ms. Zamarripa is a 61-year-old female with a history of breast cancer. She has been on systemic therapy. Dr. Coffman is her treating medical oncologist. She has received radiation therapy in the past. She recently presented with right arm weakness and word-finding difficulties. Imaging demonstrates a left temporal lobe possible hemorrhagic lesion, possibly from metastasis. She has a history of prior radiation therapy for breast cancer. PHYSICAL EXAMINATION On exam, alert, no use of accessory muscles. Occasional word-finding deficits and word substitution. IMPRESSION Ms. Zamarripa has hemorrhage potentially from metastatic disease, potentially non-cancer related. RECOMMENDATIONS Will place a call to Dr. Corrales and follow-up with her in one week. Will schedule to see her as an outpatient in approximately a week or so as well. She is inclined towards obtaining a tissue diagnosis with biopsy. We agree and discussed potential therapeutic role or potential diagnostic role of biopsy or more in-depth intervention. She expressed good understanding of treatment approach. I discussed her case with Dr. Cofmfan as well. She was initially diagnosed with upper outer quadrant breast cancer with recurrence in the mid chest in December 2009 and received 50 Gy to the chest. Treating physician was Dr. Lora. Discussed with Dr. Corrales and Dr. Coffman. Napoleon Beal MD Radiation Oncologist [facility] /5:53 PM /10:56 AM [facility]
[2017-04-04] MEDS ORDERED: NEOSTIGMINE 3 MG/3 ML SYR IV ONE (12:00)
[2017-04-04] MEDS ORDERED: DEXAMETHASONE SOD PHOS 4 MG/ML VIAL IV ONE (12:00)
[2017-04-04] MEDS ORDERED: ONDANSETRON HCL 4 MG/2 ML VIAL IV PUSH ONE (12:00)
[2017-04-04] MEDS ORDERED: LACTATED RINGER'S 1000 ML INJ 3,000 ML IV ONE (12:00)
[2017-04-04] MEDS ORDERED: SODIUM CHLORID 0.9% 500 ML INJ 500 ML IV ONE (12:00)
[2017-04-04] MEDS ORDERED: ePHEDrine/NS 25 MG/5 ML SYR IV ONE (12:00)
[2017-04-04] MEDS ORDERED: PROPOFOL 200 MG/20 ML AMP IV ONE (12:00)
[2017-04-04] MEDS ORDERED: PHENYLEPH/NS 1000 MCG/10 ML SYR IV ONE (12:00)
[2017-04-04] MEDS ORDERED: DO NOT ADM ANY ANTICOAGULANT DRUGS PRN (12:09)
[2017-04-04] MEDS ORDERED: CALCIUM GLUCONATE 10% 1 GM/10 ML VIAL IV PRN (12:45)
[2017-04-04] MEDS ORDERED: MORPHINE SULFATE 4 MG/ML INJ IV PUSH PRN (12:45)
[2017-04-04] MEDS ORDERED: BISACODYL 10 MG SUPP RECTAL PRN (12:45)
[2017-04-04] MEDS ORDERED: SODIUM CHLORIDE 0.9% FLUSH 5 ML FLUSH IVF PRN (12:45)
[2017-04-04] MEDS ORDERED: ACETAMINOPHEN 325 MG TAB PO PRN (12:45)
[2017-04-04] MEDS ORDERED: ACETAMINOPHEN/HYDROcodone 325 MG/10 MG TAB PO PRN (12:45)
[2017-04-04] MEDS ORDERED: POTASSIUM CHLOR 20 MEQ PREMIX 100 ML IV PRN (12:45)
[2017-04-04] MEDS ORDERED: MAGNESIUM SULFATE INJ 4 GM in SODIUM CHLORIDE 0.9% INJ 100 ML IV PRN (12:45)
[2017-04-04] MEDS: hydrALAZINE HCL 20 MG/ML VIAL IV PUSH PRN (12:50)
[2017-04-04] MEDS: NS + KCL 20 MEQ INJ 1,000 ML IV SCH (13:30)
--- NOTE | 2017-04-04 13:53 | PD.OP ---
Operative Report Date of Surgery: Apr 04, 2017 Preoperative Diagnosis: Left temporal lobe hemorrhagic mass Postoperative Diagnosis: Left temporal lobe hemorrhagic mass Procedure: Stereotactic, Left temporal image-guided craniotomy, resection of metastatic carcinoma Anesthesia: general Surgeon: Jorge Alberto Corrales Lock Maintenance Supervisor(s): Aquilino Castillo Operation and Findings: INTRAOPERATIVE FINDINGS Frozen section consistent with metastatic carcinoma INDICATIONS FOR THE PROCEDURE ms Harris is a 61 year-old female with history of breast carcinoma who presented with altered mental status, expessive aphasia and right sided weakness. She was found to have a left temporal lobe hemorrhagic mass with severe edema, causing mass effect on the underlying brain and midline shift. There was also a small 1cm right occipital lesion. Surgical resection was indicated. I have discussed the [id number] details of the procedure, its indications, alternatives, risks and potential complications with the patient including but not limited to the risk of infection, hemorrhage, paralysis, stroke, heart attack, even vegetative state or even the possibility of . The patient fully understands. All her questions were answered. No guarantees were given. She voiced requesting the procedure and provided informed consent. She has been offered the alternative of not having aggressive management. DETAILS OF THE SURGICAL PROCEDURE Prior to the surgery the patient underwent MRI of the brain according to the stereotactic protocol. The information was transferred to the workstation located in the operative suite. Preoperative registration was performed. The patient was then transferred to the operating room. After induction of general anesthesia, endotracheal intubation was done. A Neil catheter, bilateral DEDRA hose, sequential compression devices were placed and kept throughout the procedure. The patient was positioned supine on a 30/80 table over gel mattress with her head in rigid fixation using the Chery camp head counselor. All pressure points were carefully padded with egg crate mattress. The eyes were tapped shut after ointment was applied by the anesthesiologist to prevent corneal abrasion. A Rah hugger was placed over the exposed lower body to maintain control of the core body temperature. The electrophysiological team placed the needles and electrodes in their proper location and baseline SSEP's evoked potentials were registered. The rigid reference body was attached to the camp head counselor and intraoperative registration was performed with a laser. The left frontotemporal parietal area was shaved, prepped and draped in the usual sterile fashion. A standard curvilinear pterional incision was outlined on the scalp and infiltrated with 1% lidocaine with epinephrine. The skin incision was made with a #10 blade down to the level of the temporalis fascia in the temporal region. Luz clips were applied to the scalp. Using a Bovie, the temporalis fascia and muscle were incised and a subperiosteal dissection was performed reflecting the scalp flap with a cerebellar retractor The TPS drill was brought to the field and a bur hole was made in the temporal region using the craniotome attachment. Then, using the footplate attachment, a temporal craniotomy flap was elevated. The dura was bulging, with mass effect due to the underlying tumor. The tumor was identified with the brainlab, and the dura was opened with a 15 blade and metzembaun sissors and retracted with 4- 0 Neurolon sutures attached to the fascia. At this point of the procedure the operative microscope was draped in the usual sterile fashion and brought to the field. The rest of the surgical procedure was performed using microdissection technique with the exception of the closure. Under the operative microscope a The Silvian Fissure was opened using microdissection technique. Small corticotomy was performed and the mass was resected using microsurgical dissection technique, with the micro-bipolar forceps, microscissors, micro-suction, and gentle irrigation. The specimen was sent to the lab for histological analysis. The frozen section was reported as consistent with metastatic carcinoma. Specimen was also sent for final hystopathological annalysis. A gross resection of the mass was performed. Appropriate hemostasis was then secured using the bipolar keyboard instrument repairer. Then the incision was irrigated with saline solution. The dural edges were tacked to the bone. The craniotomy flap was then repositioned and secured in place using Striker plates and screws. A 7 millimeter Demetrius-Masterson drain was then left in the subgaleal space and externalized through a separate stab incision. The incision was then closed in layers. 0 Vicryl in interrupted sutures were used to close the temporalis fascia. The galea was closed with interrupted 3- 0 Vicryl. Mara were applied to the skin. The drain was secured with a 3-0 nylon. At the end of the procedure, the sponge, needle and instrument counts were all correct. Estimated blood loss was less than 75 cc. No blood transfusion was given. No intraoperative complications occurred. The patient received prophylactic antibiotics. The patient was then transferred to the recovery room in stable condition. COMPLICATIONS None Jorge Alberto Corrales MD Apr 04, 2017 13:53
[2017-04-04 14:27] LABS: CALCIUM-PROTEIN CORRECTED 8.3 MG/DL (8.5-10.1)
[2017-04-04] MEDS ORDERED: CALCIUM GLUCONATE INJ 1 GM in SODIUM CHLORIDE 0.9% INJ 100 ML IV PRN (15:00)
--- NOTE | 2017-04-04 16:05 | RADRPT ---
EXAM DATE/TIME: 04/04/2017 14:54 [place] COMPARISON: CT BRAIN W/O CONTRAST, March 31, 2017, 5:07. INDICATIONS : Status post craniotomy, brain tumor. RADIATION DOSE: 56.35 CTDIvol (mGy) MEDICAL HISTORY : Carcinoma, breast. Metastatic, bone. Metastatic, brain. SURGICAL HISTORY : Appendectomy. Mastectomy ENCOUNTER: Initial ACUITY: 1 day PAIN SCALE: Non-responsive LOCATION: cranial TECHNIQUE: Multiple contiguous axial images were obtained of the head. Using automated exposure control and adj ustment of the mA and/or kV according to patient size, radiation dose was kept as low as reasonably a chievable to obtain optimal diagnostic quality images. DICOM format image data is available electro nically for review and comparison. FINDINGS: CEREBRUM: The patient is status post left craniotomy with [address] There has been evacuation of the p reviously seen left temporal hematoma. There is some residual hemorrhage and low-density and air in t his region. There is extra-axial air seen around the frontal lobes bilaterally. There is persistent m ass effect with low density seen throughout the left temporal lobe. Significant midline shift is not seen. POSTERIOR FOSSA: The cerebellum and brainstem are intact. The 4th ventricle is midline. The cerebellopontine angle i s unremarkable. EXTRACRANIAL: The visualized portion of the orbits is intact. SKULL: The patient is status post left craniotomy with [address]. CONCLUSION: Evacuation of the left temporal hematoma with residual persistent mass effect of the left temporal lo be. [address] are in place. Van More MD on April 04, 2017 at 15:58 Board Certified Radiologist. This report was verified electronically.
[2017-04-04] MEDS: ceFAZolin 2 GM PREMIX 50 ML IV SCH (16:51)
[2017-04-04] MEDS: MORPHINE SULFATE 4 MG/ML INJ IV PUSH PRN ×2 (17:06→19:00)
[2017-04-04] MEDS: CHLORHEXIDINE GLUCONATE 4% SOLN 120 ML BTL TOP SCH (20:33)
[2017-04-04] MEDS: MONTELUKAST SODIUM 10 MG TAB PO SCH (21:00)
[2017-04-04] MEDS: DOCUSATE SODIUM 100 MG CAP PO SCH (21:00)
[2017-04-04] MEDS: levETIRAcetam INJ 500 MG in SODIUM CHLORIDE 0.9% INJ 100 ML IV SCH (21:33)
[2017-04-04] MEDS: SODIUM CHLORIDE 0.9% FLUSH 5 ML FLUSH IVF SCH (21:34)
[2017-04-04 22:00] VITALS: BP_SYST 131; BP_SYST 140; BP_DIAS 62; BP_DIAS 67; PULSE 98; RESP 10; TEMP 97.6; O2SAT 94
[2017-04-04] MEDS: ONDANSETRON HCL 4 MG/2 ML VIAL IV PRN (22:03)
[2017-04-04 22:44] VITALS: O2SAT 95
[2017-04-05] VITALS (13 sets, daily range): BP systolic 96–146; BP diastolic 57–94; PULSE 82–97; RESP 10–28; TEMP 97.5–98.1; O2SAT 92–98
[2017-04-05] MEDS: NS + KCL 20 MEQ INJ 1,000 ML IV SCH ×3 (00:08→20:00)
[2017-04-05] MEDS: ceFAZolin 2 GM PREMIX 50 ML IV SCH ×2 (01:10→09:52)
[2017-04-05] MEDS: CHLORHEXIDINE GLUCONATE 2 % 1 PACK (2 CLOTHS) TOP SCH (01:48)
[2017-04-05] MEDS: INSULIN NovoLIN REGULAR SUPPLEMENTAL SCALE SQ SCH ×5 (01:48→21:00)
[2017-04-05] MEDS: DEXAMETHASONE SOD PHOS 4 MG/ML VIAL IV PUSH SCH ×4 (03:42→20:41)
[2017-04-05] MEDS: ONDANSETRON HCL 4 MG/2 ML VIAL IV PRN ×2 (03:42→10:30)
[2017-04-05] MEDS: MORPHINE SULFATE 4 MG/ML INJ IV PUSH PRN ×5 (03:42→12:15)
[2017-04-05 05:54] LABS: AUTOMATED NEUTROPHIL # 5.6 TH/MM3 (1.8-7.7); BASOPHIL % 0.1 % (0.0-2.0); LYMPH % 5.1 % (9.0-44.0); LYMPHOCYTE # 0.3 TH/MM3 (1.0-4.8); MEAN CELL VOLUME 92.2 FL (80.0-100.0); MEAN CORPUSCULAR HGB CONC 34.7 % (32.0-36.0); NEUT % 83.8 % (16.0-70.0); PLATELET COUNT 201 TH/MM3 (150-450); RED BLOOD COUNT 3.36 MIL/MM3 (4.00-5.30); RED CELL DISTRIBUTION WIDTH 25.5 % (11.6-17.2); WHITE BLOOD COUNT 6.7 TH/MM3 (4.0-11.0)
[2017-04-05 05:55] LABS: HEMO FLAGS AUTO DIFF
[2017-04-05 06:19] LABS: BICARBONATE 27.9 MEQ/L (21.0-32.0); POTASSIUM 4.4 MEQ/L (3.5-5.1)
[2017-04-05 06:30] LABS: CALCIUM-PROTEIN CORRECTED 7.7 MG/DL (8.5-10.1)
[2017-04-05 07:47] LABS: OVALOCYTES 1+ (NORMAL)
[2017-04-05 07:49] LABS: KERATOCYTES OCC (NORMAL); PLATELET ESTIMATE SMEAR NORMAL (NORMAL); PLATELET MORPHOLOGY NORMAL (NORMAL); SCAN/DIFF AUTO DIFF CONFIRMED
[2017-04-05] MEDS: PANTOPRAZOLE SODIUM 40 MG VIAL IVP SCH (09:00)
--- NOTE | 2017-04-05 09:27 | HHI.NSPN ---
(Victor Hugo Gómez) History Chief Complaint: no complaints (Victor Hugo Gómez) Interval History This is a 61-year-old female transferred from [facility]. She presented to the outside facility with right-sided weakness and difficulty speaking. She was brought to the emergency room by her family. CT head at the outside hospital demonstrated a left temporal mass with associated edema and intraparenchymal hemorrhage. She was transferred emergently to [place]. All of her symptoms have resolved. She denies headache, weakness, numbness, speech problems currently. Denies chest pain, fever, chills, shortness of breath. She has history of breast cancer with metastases. Denies any incontinence of stool or urinary retention. Neurosurgical consultation was requested 04/03: cerebral angio shows hemorrhagic mass without evidence of aneurysm. remained clinically stable over the weekend. to OR tomorrow for biopsy/poss resection 04/05: Pt awake and alert. Sitting on edge of bed with PT. Denies headache. Mild dizziness when first got up. (Victor Hugo Gómez) Review of Systems General: Negative for: fever, chills, insomnia Respiratory: Negative for: shortness of breath, cough, sputum Cardiovascular: Negative for: chest pain Gastrointestinal: Negative for: nausea, vomitting, diarrhea, constipation ( Victor Hugo Gómez) Exam Results Vital Signs Date Time Temp Pulse Resp B/P Pulse Ox O2 Delivery O2 Flow Rate FiO2 04/05/17 06:57 22 04/05/17 06:00 89 04/05/17 04:00 98.1 138/67 96 04/04/17 22:44 21 04/04/17 20:30 Room Air 04/04/17 18:00 2 Intake and Output 04/04/17 04/04/17 04/05/17 08:00 16:00 00:00 Intake Total 0 ml 2650 ml 1915 ml Output Total 1545 ml 1292 ml Balance 0 ml 1105 ml 623 ml (Victor Hugo Gómez) Physical Examination Resp: CTA bilaterally Heart: NSR no murmurs Abd: Soft positive bs Skin: No cyanosis or erythema. head bandaged. SCOT drain in place. Muscle: Moves all 4 extremities Neuro: Pt awake and alert. Pupils 3mm bilaterally. Speech clear and appropriate. Follows commands well. (Victor Hugo Gómez) Lab, Micro, Other Results Last Impressions Head CT 04/04/17 0000 Signed Impressions: Service Date/Time: Tuesday, April 04, 2017 14:54 - CONCLUSION: Evacuation of the left temporal hematoma with residual persistent mass effect of the left temporal lobe. [address] are in place. Van More MD Chest X-Ray 04/02/17 0000 Signed Impressions: Service Date/Time: Sunday, April 02, 2017 13:56 - CONCLUSION: No acute disease Van Banks MD Head Magnetic Resonance Angiography 03/31/17 0000 Signed Impressions: Service Date/Time: Friday, March 31, 2017 09:27 - CONCLUSION: 1. No evidence of aneurysm or significant vasculopathy. 2. Significant mass effect on the middle cerebral artery vessels from the large left temporal lobe hematoma. 3. Review of MRI demonstrates small focal magnetic susceptibility lesions with enhancement. Hemorrhagic metastatic deposits versus small vascular malformations with chronic hemorrhage should be considered as possible etiologies. Amyloid angiopathy although less likely also needs to be considered. Harlan Richey MD Cerebral Arteriogram 03/31/17 0000 Signed Impressions: Service Date/Time: Friday, March 31, 2017 15:15 - CONCLUSION: 1. No aneurysmal disease. 2. Displacement of the inferior branches of the left MCA territory secondary to the masslike parenchymal hemorrhage in the left temporal lobe. Dante Rollins MD Brain MRI 03/31/17 0000 Signed Impressions: Service Date/Time: Friday, March 31, 2017 09:27 - CONCLUSION: 1. 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 2. Associated 4 mm left to right subfalcine shift. 3. Nonspecific areas of punctate enhancement in the right occiput and tracking along the left tentorium as well as adjacent to the falx in the anterior left high parietal convexity. I do not believe the signal is characteristic of hemorrhage and would consider possible metastatic deposits. Patient does have a history of breast cancer. Dante Rollins MD ADDENDUM: Also noted, on susceptibility weighted imaging, all the areas described above show marked susceptibility artifact characteristic of some degree of hemosiderin. Again, these could represent small metastatic deposits or punctate vascular malformations which have intermittently bled in the past. These areas were not on the prior MRI of the brain report aren't imaging 07-18-2012. Dante Rollins MD Laboratory Tests Test 04/04/17 04/04/17 04/05/17 10:30 21:00 05:34 Blood Type O NEGATIVE Nasal Screen MRSA (PCR) MRSA NOT DETECTED White Blood Count 6.7 TH/MM3 Red Blood Count 3.36 MIL/MM3 Hemoglobin 10.7 GM/DL Hematocrit 31.0 % Mean Corpuscular Volume 92.2 FL Mean Corpuscular Hemoglobin 32.0 PG Mean Corpuscular Hemoglobin 34.7 % Concent Red Cell Distribution Width 25.5 % Platelet Count 201 TH/MM3 Mean Platelet Volume 6.7 FL Neutrophils (%) (Auto) 83.8 % Lymphocytes (%) (Auto) 5.1 % Monocytes (%) (Auto) 11.0 % Eosinophils (%) (Auto) 0.0 % Basophils (%) (Auto) 0.1 % Neutrophils # (Auto) 5.6 TH/MM3 Lymphocytes # (Auto) 0.3 TH/MM3 Monocytes # (Auto) 0.7 TH/MM3 Eosinophils # (Auto) 0.0 TH/MM3 Basophils # (Auto) 0.0 TH/MM3 CBC Comment AUTO DIFF Differential Comment AUTO DIFF CONFIRMED Platelet Estimate NORMAL Platelet Morphology Comment NORMAL Ovalocytes 1+ Keratocytes OCC Sodium Level 135 MEQ/L Potassium Level 4.4 MEQ/L Chloride Level 101 MEQ/L Carbon Dioxide Level 27.9 MEQ/L Anion Gap 6 MEQ/L Blood Urea Nitrogen 22 MG/DL Creatinine 0.73 MG/DL Estimat Glomerular Filtration 82 ML/MIN Rate Random Glucose 159 MG/DL Calcium Level 7.3 MG/DL Protein Corrected Calcium 7.7 MG/DL Total Protein 6.3 GM/DL 04/04/17 04/04/17 04/05/17 15:00 23:00 07:00 Intake Total 2650 ml 1915 ml 1273 ml Output Total 1545 ml 1292 ml 760 ml Balance 1105 ml 623 ml 513 ml Intake Oral 780 ml 480 ml IV Total 250 ml 1135 ml 793 ml Other 2400 ml Output Urine Total 375 ml 1250 ml 700 ml Drainage Total 95 ml 42 ml 60 ml Estimated Blood Loss 75 ml Other 1000 ml # Bowel Movements 0 0 (Victor Hugo Gómez) Medical Decision Making Impression and Plan A: 61 y/o FM s/p left craniotomy with resection of hemorrhagic mass. Path pending. P: Continue with Neuro checks. Continue with rehab efforts. D/C a line. Follow pathology. (Victor Hugo Gómez) Attending Statement The exam, history, and the medical decision-making described in the above note were completed with the assistance of the mid-level provider. I reviewed and agree with the findings presented. I attest that I had a [id number] encounter with the patient on the same day, and personally performed and documented my assessment and findings in the medical record. (Joon Arellano MD) Victor Hugo Gómez Apr 05, 2017 09:27 Joon Arellano MD Apr 05, 2017 18:03
[2017-04-05] MEDS: levETIRAcetam INJ 500 MG in SODIUM CHLORIDE 0.9% INJ 100 ML IV SCH ×2 (09:53→20:43)
[2017-04-05] MEDS: SODIUM CHLORIDE 0.9% FLUSH 5 ML FLUSH IVF SCH ×2 (09:53→20:43)
[2017-04-05] MEDS: DOCUSATE SODIUM 50 MG/SENNA 8.6 MG TAB PO SCH ×2 (09:54→20:43)
[2017-04-05] MEDS: PRAVASTATIN SOD 40 MG TAB PO SCH (09:54)
[2017-04-05] MEDS: DOCUSATE SODIUM 100 MG CAP PO SCH ×2 (09:55→20:42)
[2017-04-05] MEDS: PANTOPRAZOLE SOD 40 MG DELAYED RELEASE TAB PO SCH (09:56)
[2017-04-05] MEDS: AMIODARONE 200 MG TAB PO SCH (10:14)
[2017-04-05] MEDS: ACETAMINOPHEN/HYDROcodone 325 MG/10 MG TAB PO PRN ×2 (15:20→20:42)
--- NOTE | 2017-04-05 17:55 | HHI.PR ---
Subjective Remarks No new complaints. Objective Vitals Vital Signs Date Time Temp Pulse Resp B/P Pulse Ox O2 Delivery O2 Flow Rate FiO2 04/05/17 12:00 97.5 84 10 146/74 93 04/05/17 08:00 97.6 88 11 146/70 92 04/05/17 07:00 96 Room Air 04/05/17 06:57 22 04/05/17 06:00 89 04/05/17 04:00 85 04/05/17 04:00 98.1 85 12 138/67 96 04/05/17 02:00 90 04/05/17 00:00 97.8 88 10 122/57 97 Automatic Cuff 04/04/17 22:44 95 21 04/04/17 22:02 12 04/04/17 22:00 97.6 98 10 140/67 94 131/62 04/04/17 20:30 96 16 120/56 97 Room Air 04/04/17 20:00 94 Room Air 04/04/17 20:00 94 17 122/58 96 Room Air 04/04/17 19:00 90 16 126/66 99 Room Air 04/04/17 18:00 97.4 86 16 129/62 99 Nasal Cannula 2 04/04/17 04/04/17 04/05/17 15:00 23:00 07:00 Intake Total 2650 ml 1915 ml 1273 ml Output Total 1545 ml 1292 ml 760 ml Balance 1105 ml 623 ml 513 ml Intake Oral 780 ml 480 ml IV Total 250 ml 1135 ml 793 ml Other 2400 ml Output Urine Total 375 ml 1250 ml 700 ml Drainage Total 95 ml 42 ml 60 ml Estimated Blood Loss 75 ml Other 1000 ml # Bowel Movements 0 0 Result Diagram: 04/05/17 0534 04/05/17 0534 Imaging Last Impressions Head CT 04/04/17 0000 Signed Impressions: Service Date/Time: Tuesday, April 04, 2017 14:54 - CONCLUSION: Evacuation of the left temporal hematoma with residual persistent mass effect of the left temporal lobe. [address] are in place. Van More MD Chest X-Ray 04/02/17 0000 Signed Impressions: Service Date/Time: Sunday, April 02, 2017 13:56 - CONCLUSION: No acute disease Van Bakns MD Head Magnetic Resonance Angiography 8/11/17 0000 Signed Impressions: Service Date/Time: Friday, March 31, 2017 09:27 - CONCLUSION: 1. No evidence of aneurysm or significant vasculopathy. 2. Significant mass effect on the middle cerebral artery vessels from the large left temporal lobe hematoma. 3. Review of MRI demonstrates small focal magnetic susceptibility lesions with enhancement. Hemorrhagic metastatic deposits versus small vascular malformations with chronic hemorrhage should be considered as possible etiologies. Amyloid angiopathy although less likely also needs to be considered. Harlan Richey MD Cerebral Arteriogram 03/31/17 Signed Impressions: Service Date/Time: Friday, March 31, 2017 15:15 - CONCLUSION: 1. No aneurysmal disease. 2. Displacement of the inferior branches of the left MCA territory secondary to the masslike parenchymal hemorrhage in the left temporal lobe. Dante Rollins MD Brain MRI 03/31/17 Signed Impressions: Service Date/Time: Friday, March 31, 2017 09:27 - CONCLUSION: 1. 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 2. Associated 4 mm left to right subfalcine shift. 3. Nonspecific areas of punctate enhancement in the right occiput and tracking along the left tentorium as well as adjacent to the falx in the anterior left high parietal convexity. I do not believe the signal is characteristic of hemorrhage and would consider possible metastatic deposits. Patient does have a history of breast cancer. Dante Rollins MD ADDENDUM: Also noted, on susceptibility weighted imaging, all the areas described above show marked susceptibility artifact characteristic of some degree of hemosiderin. Again, these could represent small metastatic deposits or punctate vascular malformations which have intermittently bled in the past. These areas were not on the prior MRI of the brain report aren't imaging 07-18-2012. Dante Rollins MD Objective Remarks GENERAL: This is a well-nourished, well-developed patient, in no apparent distress. CARDIOVASCULAR: Regular rate and rhythm without murmurs, gallops, or rubs. RESPIRATORY: Clear to auscultation. Breath sounds equal bilaterally. No wheezes , rales, or rhonchi. GASTROINTESTINAL: Abdomen soft, non-tender, nondistended. Normal active bowel sounds MUSCULOSKELETAL: Extremities without clubbing, cyanosis, or edema. NEURO: Alert & Oriented x4 to person, place, time, situation. Moves all ext x4 A/P Problem List: (1) Intracranial mass Status: Acute Plan: - comgmt with Neurosurgery and Oncology - s/p left craniotomy with resection of hemorrhagic mass - pathology pending - morphine, norco, decadron, keppra, zofran (2) Breast cancer Status: Acute Plan: - comgmt with Oncology. - per Oncology prefer pt have outpt staging with CT/PET scan (3) Atrial fibrillation, chronic Status: Chronic Plan: - amiodarone Nigel Hagen DO Apr 05, 2017 17:55
[2017-04-05] MEDS: MONTELUKAST SODIUM 10 MG TAB PO SCH (20:42)
[2017-04-06] VITALS (12 sets, daily range): BP systolic 133–153; BP diastolic 64–85; PULSE 74–95; RESP 12–22; TEMP 97.6–98; O2SAT 94–99
[2017-04-06] MEDS: NS + KCL 20 MEQ INJ 1,000 ML IV SCH ×2 (00:41→11:47)
[2017-04-06] MEDS: ACETAMINOPHEN/HYDROcodone 325 MG/10 MG TAB PO PRN ×3 (00:44→08:43)
[2017-04-06] MEDS: INSULIN NovoLIN REGULAR SUPPLEMENTAL SCALE SQ SCH ×5 (03:00→21:11)
[2017-04-06] MEDS: CHLORHEXIDINE GLUCONATE 2 % 1 PACK (2 CLOTHS) TOP SCH (03:11)
[2017-04-06] MEDS: DEXAMETHASONE SOD PHOS 4 MG/ML VIAL IV PUSH SCH ×4 (03:52→21:10)
[2017-04-06 05:01] LABS: HEMATOCRIT 31.1 % (35.0-46.0); MEAN CELL VOLUME 93.1 FL (80.0-100.0); MEAN CORPUSCULAR HEMOGLOBIN 32.6 PG (27.0-34.0); PLATELET COUNT 211 TH/MM3 (150-450); RED BLOOD COUNT 3.34 MIL/MM3 (4.00-5.30); RED CELL DISTRIBUTION WIDTH 24.6 % (11.6-17.2)
[2017-04-06 05:03] LABS: REVIEW FLAG FINAL
[2017-04-06 05:36] LABS: BICARBONATE 27.6 MEQ/L (21.0-32.0)
[2017-04-06 05:39] LABS: POTASSIUM 4.6 MEQ/L (3.5-5.1)
[2017-04-06 06:12] LABS: CALCIUM-PROTEIN CORRECTED 7.7 MG/DL (8.5-10.1)
[2017-04-06] MEDS: AMIODARONE 200 MG TAB PO SCH (08:41)
[2017-04-06] MEDS: DOCUSATE SODIUM 100 MG CAP PO SCH ×2 (08:41→20:56)
[2017-04-06] MEDS: levETIRAcetam INJ 500 MG in SODIUM CHLORIDE 0.9% INJ 100 ML IV SCH ×2 (08:41→21:10)
[2017-04-06] MEDS: PANTOPRAZOLE SOD 40 MG DELAYED RELEASE TAB PO SCH (08:41)
[2017-04-06] MEDS: PANTOPRAZOLE SODIUM 40 MG VIAL IVP SCH (08:41)
[2017-04-06] MEDS: PRAVASTATIN SOD 40 MG TAB PO SCH (08:41)
[2017-04-06] MEDS: DOCUSATE SODIUM 50 MG/SENNA 8.6 MG TAB PO SCH ×2 (08:41→20:56)
[2017-04-06] MEDS: SODIUM CHLORIDE 0.9% FLUSH 5 ML FLUSH IVF SCH ×2 (08:41→20:57)
[2017-04-06] MEDS: hydrALAZINE HCL 20 MG/ML VIAL IV PUSH PRN (15:36)
--- NOTE | 2017-04-06 16:16 | HHI.PR ---
Subjective Remarks Patient feeling well await final pathology results and possible transfer to [facility] floor Objective Vitals GENERAL: SKIN: Warm and dry. HEAD: Atraumatic. Normocephalic. drain in place EYES: Pupils equal and round. No scleral icterus. No injection or drainage. ENT: No nasal bleeding or discharge. Mucous membranes pink and moist. NECK: Trachea midline. No JVD. CARDIOVASCULAR: Regular rate and rhythm. RESPIRATORY: No accessory muscle use. Clear to auscultation. Breath sounds equal bilaterally. GASTROINTESTINAL: Abdomen soft, non-tender, nondistended. Hepatic and splenic margins not palpable. MUSCULOSKELETAL: Extremities without clubbing, cyanosis, or edema. No obvious deformities. NEUROLOGICAL: Awake and alert. No obvious cranial nerve deficits. Motor grossly within normal limits. Five out of 5 muscle strength in the arms and legs. Normal speech. PSYCHIATRIC: Appropriate mood and affect; insight and judgment normal. Vital Signs Date Time Temp Pulse Resp B/P Pulse Ox O2 Delivery O2 Flow Rate FiO2 04/06/17 14:00 85 04/06/17 12:00 97.8 84 19 143/79 96 04/06/17 12:00 84 04/06/17 10:00 87 04/06/17 08:19 94 21 04/06/17 08:00 74 04/06/17 08:00 97.8 74 12 153/85 96 04/06/17 07:00 96 Nasal Cannula 04/06/17 06:00 95 04/06/17 04:00 97.6 79 16 143/76 99 04/06/17 04:00 79 04/06/17 02:00 81 04/06/17 00:00 82 04/06/17 00:00 97.7 83 17 138/72 99 04/05/17 22:30 Nasal Cannula 2.00 04/05/17 22:00 97 04/05/17 21:45 98 Nasal Cannula 2.00 04/05/17 20:00 97.6 90 28 136/94 97 04/05/17 20:00 Room Air 04/05/17 20:00 93 04/05/17 18:00 82 04/05/17 04/05/17 04/06/17 15:00 23:00 07:00 Intake Total 1382 ml 1351 ml 1019 ml Output Total 753 ml 731 ml 1451 ml Balance 629 ml 620 ml -432 ml Intake Oral 480 ml 720 ml 240 ml IV Total 902 ml 631 ml 779 ml Output Urine Total 700 ml 650 ml 1350 ml Drainage Total 53 ml 81 ml 101 ml # Bowel Movements 0 1 0 Result Diagram: 04/06/175 04/06/17 0425 Imaging Last Impressions Head CT 04/04/17 0000 Signed Impressions: Service Date/Time: Tuesday, April 04, 2017 14:54 - CONCLUSION: Evacuation of the left temporal hematoma with residual persistent mass effect of the left temporal lobe. [address] dra[address] are in place. Van More MD Chest X-Ray 04/02/17 0000 Signed Impressions: Service Date/Time: Sunday, April 02, 2017 13:56 - CONCLUSION: No acute disease Van Banks MD Head Magnetic Resonance Angiography 03/31/17 0000 Signed Impressions: Service Date/Time: Friday, March 31, 2017 09:27 - CONCLUSION: 1. No evidence of aneurysm or significant vasculopathy. 2. Significant mass effect on the middle cerebral artery vessels from the large left temporal lobe hematoma. 3. Review of MRI demonstrates small focal magnetic susceptibility lesions with enhancement. Hemorrhagic metastatic deposits versus small vascular malformations with chronic hemorrhage should be considered as possible etiologies. Amyloid angiopathy although less likely also needs to be considered. Harlan Richey MD Cerebral Arteriogram 03/31/17 0000 Signed Impressions: Service Date/Time: Friday, March 31, 2017 15:15 - CONCLUSION: 1. No aneurysmal disease. 2. Displacement of the inferior branches of the left MCA territory secondary to the masslike parenchymal hemorrhage in the left temporal lobe. Dante Rollins MD Brain MRI 03/31/17 0000 Signed Impressions: Service Date/Time: Friday, March 31, 2017 09:27 - CONCLUSION: 1. 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 2. Associated 4 mm left to right subfalcine shift. 3. Nonspecific areas of punctate enhancement in the right occiput and tracking along the left tentorium as well as adjacent to the falx in the anterior left high parietal convexity. I do not believe the signal is characteristic of hemorrhage and would consider possible metastatic deposits. Patient does have a history of breast cancer. Dante Rollins MD ADDENDUM: Also noted, on susceptibility weighted imaging, all the areas described above show marked susceptibility artifact characteristic of some degree of hemosiderin. Again, these could represent small metastatic deposits or punctate vascular malformations which have intermittently bled in the past. These areas were not on the prior MRI of the brain report aren't imaging 07-18-2012. Dante Rollins MD Objective Remarks GENERAL: This is a well-nourished, well-developed patient, in no apparent distress. CARDIOVASCULAR: Regular rate and rhythm without murmurs, gallops, or rubs. RESPIRATORY: Clear to auscultation. Breath sounds equal bilaterally. No wheezes , rales, or rhonchi. GASTROINTESTINAL: Abdomen soft, non-tender, nondistended. Normal active bowel sounds MUSCULOSKELETAL: Extremities without clubbing, cyanosis, or edema. NEURO: Alert & Oriented x4 to person, place, time, situation. Moves all ext x4 A/P Problem List: (1) Intracranial mass Status: Acute Plan: - comgmt with Neurosurgery and Oncology - s/p left craniotomy with resection of hemorrhagic mass - pathology pending - morphine, norco, decadron, keppra, zofran (2) Breast cancer Status: Acute Plan: - comgmt with Oncology. - per Oncology prefer pt have outpt staging with CT/PET scan (3) Atrial fibrillation, chronic Status: Chronic Plan: - amiodarone Assessment and Plan plan as per oncology ,neurosurgery Ezra Levin MD Apr 06, 2017 16:16
--- NOTE | 2017-04-06 17:41 | HHI.NSPN ---
(Zach Bah) History Chief Complaint: Some aching to the surgical site. (Zach Bah) Interval History This is a 61-year-old female transferred from [facility]. She presented to the outside facility with right-sided weakness and difficulty speaking. She was brought to the emergency room by her family. CT head at the outside hospital demonstrated a left temporal mass with associated edema and intraparenchymal hemorrhage. She was transferred emergently to [facility]. All of her symptoms have resolved. She denies headache, weakness, numbness, speech problems currently. Denies chest pain, fever, chills, shortness of breath. She has history of breast cancer with metastases. Denies any incontinence of stool or urinary retention. Neurosurgical consultation was requested 04/03: cerebral angio shows hemorrhagic mass without evidence of aneurysm. remained clinically stable over the weekend. to OR tomorrow for biopsy/poss resection 04/04: Stereotactic, Left temporal image-guided craniotomy, resection of metastatic carcinoma 04/05: Pt awake and alert. Sitting on edge of bed with PT. Denies headache. Mild dizziness when first got up. 04/06: The patient is awake and alert and visiting with friends when seen this afternoon. Her only complaint is some aching to the surgical site. (Zach Bah) System Review Comments Constitutional: Patient denies any fever or chills. HEENT: Patient has pain at the surgical site. She denies any visual or hearing difficulty. Respiratory: Patient denies any shortness of breath or productive cough. Cardiovascular: Patient denies any chest pain, palpitations or irregular heartbeat. Gastrointestinal: Patient states she hasn't had a bowel movement in a couple days. She denies any abdominal pain, nausea or vomiting. Genitourinary: Patient denies any incontinence of urine. Musculoskeletal: Patient denies any pain or weakness to the extremities or any back pain. Neurologic: Patient denies any headache, dizziness, numbness or tingling. (Zach Bah) Exam Results Vital Signs Date Time Temp Pulse Resp B/P Pulse Ox O2 Delivery O2 Flow Rate FiO2 04/06/17 16:00 84 04/06/17 16:00 97.9 22 137/64 96 04/06/17 08:19 21 04/06/17 07:00 Nasal Cannula 04/05/17 22:30 2.00 Intake and Output 04/05/17 04/05/17 04/06/17 08:00 16:00 00:00 Intake Total 1273 ml 1382 ml 1351 ml Output Total 760 ml 753 ml 731 ml Balance 513 ml 629 ml 620 ml (Zach Bah) Physical Examination GENERAL: Awake & alert, visiting w/friends. Readily interacts & smiles, affect normal. NAD. HEENT: Normocephalic, intact dressing to scalp. PERRLA 3 mm brisk, EOMI. MMM & pink, tongue midline to protrusion. NECK: Active ROM w/o any pain, no JVD, trachea midline. RESPIRATORY: CTAB w/o W/R/R, equal excursion, nonlaboured, on RA. CARDIOVASCULAR: S1S2 w/RRR w/o M/G/R, radial & pedal pulses 2+ bilaterally, cap refill < 2 sec, no pedal edema. ABDOMEN: Soft, nontender, positive bowel sounds. MUSCULOSKELETAL: MÉNDEZ w/o difficulty, no evident deformity or clubbing. NEUROLOGICAL: AAOx3. Speech clear & appropriate. Follows simple commands w/o difficulty. CN II-XII grossly intact. Sensation to light touch intact to all extremities. Motor strength 5/5 to all flexion & extension muscle groups. (Zach Bah) Lab, Micro, Other Results Recent Impressions Head CT 04/04/17 0000 Signed Impressions: Service Date/Time: Tuesday, April 04, 2017 14:54 - CONCLUSION: Evacuation of the left temporal hematoma with residual persistent mass effect of the left temporal lobe. 2 subd[address] drains are in place. Van More MD // 06:00 18:00 06:00 18:00 06:00 18:00 Intake Total 480 ml 3297 ml 2541 ml 1382 ml 2370 ml 1914 ml Output Total 2260 ml 1337 ml 753 ml 2182 ml 1475 ml Balance 480 ml 1037 ml 1204 ml 629 ml 188 ml 439 ml Intake Oral 480 ml 300 ml 960 ml 480 ml 960 ml 900 ml IV Total 597 ml 1581 ml 902 ml 1410 ml 1014 ml Other 2400 ml Output Urine Total 1075 ml 1250 ml 700 ml 2000 ml 1400 ml Drainage Total 110 ml 87 ml 53 ml 182 ml 75 ml Estimated Blood Loss 75 ml Other 1000 ml # Voids 1 1 # Bowel Movements 0 0 0 0 1 0 Laboratory Tests Test 04/04/17 04/04/17 04/04/17 04/04/17 06:40 08:57 10:30 21:00 White Blood Count 5.5 TH/MM3 Red Blood Count 3.86 MIL/MM3 Hemoglobin 12.1 GM/DL Hematocrit 35.6 % Mean Corpuscular Volume 92.3 FL Mean Corpuscular Hemoglobin 31.4 PG Mean Corpuscular Hemoglobin 34.1 % Concent Red Cell Distribution Width 26.4 % Platelet Count 246 TH/MM3 Mean Platelet Volume 6.5 FL Sodium Level 133 MEQ/L Potassium Level 4.2 MEQ/L Chloride Level 99 MEQ/L Carbon Dioxide Level 26.2 MEQ/L Anion Gap 8 MEQ/L Blood Urea Nitrogen 26 MG/DL Creatinine 0.70 MG/DL Estimat Glomerular Filtration 86 ML/MIN Rate Random Glucose 171 MG/DL Calcium Level 8.4 MG/DL Protein Corrected Calcium 8.3 MG/DL Total Protein 7.3 GM/DL Blood Type O NEGATIVE O NEGATIVE Antibody Screen NEGATIVE Blood Bank Comment Crossmatch Leukocyte-Reduced Red Blood Cells Nasal Screen MRSA (PCR) MRSA NOT DETECTED Test 04/05/17 04/06/17 05:34 04:25 White Blood Count 6.7 TH/MM3 6.0 TH/MM3 Red Blood Count 3.36 MIL/MM3 3.34 MIL/MM3 Hemoglobin 10.7 GM/DL 10.9 GM/DL Hematocrit 31.0 % 31.1 % Mean Corpuscular Volume 92.2 FL 93.1 FL Mean Corpuscular Hemoglobin 32.0 PG 32.6 PG Mean Corpuscular Hemoglobin 34.7 % 35.0 % Concent Red Cell Distribution Width 25.5 % 24.6 % Platelet Count 201 TH/MM3 211 TH/MM3 Mean Platelet Volume 6.7 FL 7.1 FL Neutrophils (%) (Auto) 83.8 % Lymphocytes (%) (Auto) 5.1 % Monocytes (%) (Auto) 11.0 % Eosinophils (%) (Auto) 0.0 % Basophils (%) (Auto) 0.1 % Neutrophils # (Auto) 5.6 TH/MM3 Lymphocytes # (Auto) 0.3 TH/MM3 Monocytes # (Auto) 0.7 TH/MM3 Eosinophils # (Auto) 0.0 TH/MM3 Basophils # (Auto) 0.0 TH/MM3 CBC Comment AUTO DIFF Differential Comment AUTO DIFF CONFIRMED Platelet Estimate NORMAL Platelet Morphology Comment NORMAL Ovalocytes 1+ Keratocytes OCC Sodium Level 135 MEQ/L 137 MEQ/L Potassium Level 4.4 MEQ/L 4.6 MEQ/L Chloride Level 101 MEQ/L 102 MEQ/L Carbon Dioxide Level 27.9 MEQ/L 27.6 MEQ/L Anion Gap 6 MEQ/L 7 MEQ/L Blood Urea Nitrogen 22 MG/DL 19 MG/DL Creatinine 0.73 MG/DL 0.61 MG/DL Estimat Glomerular Filtration 82 ML/MIN 100 ML/MIN Rate Random Glucose 159 MG/DL 148 MG/DL Calcium Level 7.3 MG/DL 7.2 MG/DL Protein Corrected Calcium 7.7 MG/DL 7.7 MG/DL Total Protein 6.3 GM/DL 6.1 GM/DL Vital Signs Date Time Temp Pulse Resp B/P Pulse Ox O2 Delivery O2 Flow Rate FiO2 04/06/17 16:00 84 04/06/17 16:00 97.9 84 22 137/64 96 04/06/17 14:00 85 04/06/17 12:00 97.8 84 19 143/79 96 04/06/17 12:00 84 04/06/17 10:00 87 04/06/17 08:19 94 21 04/06/17 08:00 74 04/06/17 08:00 97.8 74 12 153/85 96 04/06/17 07:00 96 Nasal Cannula 04/06/17 06:00 95 04/06/17 04:00 97.6 79 16 143/76 99 04/06/17 04:00 79 04/06/17 02:00 81 04/06/17 00:00 82 04/06/17 00:00 97.7 83 17 138/72 99 04/05/17 22:30 Nasal Cannula 2.00 04/05/17 22:00 97 8/16/17 21:45 98 Nasal Cannula 2.00 04/05/17 20:00 97.6 90 28 136/94 97 04/05/17 20:00 Room Air 04/05/17 20:00 93 04/05/17 18:00 82 04/05/17 16:00 84 04/05/17 16:00 97.5 84 14 96/86 94 04/05/17 14:00 86 04/05/17 12:00 84 04/05/17 12:00 97.5 84 10 146/74 93 04/05/17 10:00 92 04/05/17 08:00 91 04/05/17 08:00 97.6 88 11 146/70 92 04/05/17 07:00 96 Room Air 04/05/17 06:57 22 04/05/17 06:00 89 04/05/17 04:00 85 04/05/17 04:00 98.1 85 12 138/67 96 04/05/17 02:00 90 04/05/17 00:00 97.8 88 10 122/57 97 Automatic Cuff 04/04/17 22:44 95 21 04/04/17 22:02 12 04/04/17 22:00 97.6 98 10 140/67 94 131/62 04/04/17 20:30 96 16 120/56 97 Room Air 04/04/17 20:00 94 Room Air 04/04/17 20:00 94 17 122/58 96 Room Air 04/04/17 19:00 90 16 126/66 99 Room Air 04/04/17 18:00 97.4 86 16 129/62 99 Nasal Cannula 2 04/04/17 17:00 84 16 136/68 99 Nasal Cannula 2 04/04/17 16:00 81 16 140/69 99 Nasal Cannula 2 04/04/17 15:00 76 16 97 Nasal Cannula 2 136/70 04/04/17 14:00 97.4 73 16 135/66 98 Nasal Cannula 2 131/67 04/04/17 13:45 72 16 134/65 97 Nasal Cannula 2 134/69 04/04/17 13:30 72 16 137/69 97 Nasal Cannula 2 134/69 04/04/17 13:15 69 16 149/74 97 Nasal Cannula 2 143/70 04/04/17 13:00 73 16 164/85 92 Nasal Cannula 2 04/04/17 12:45 72 16 164/85 92 Nasal Cannula 2 163/83 04/04/17 12:30 71 16 168/90 96 Nasal Cannula 2 163/83 04/04/17 12:15 78 16 158/82 98 Nasal Cannula 2 158/83 04/04/17 12:00 98.0 78 16 159/79 98 Nasal Cannula 2 04/04/17 07:20 95.5 89 18 152/96 97 04/04/17 04:10 97.4 83 17 148/91 96 04/03/17 23:50 97.4 86 18 152/87 97 04/03/17 20:15 97.1 87 16 149/83 98 (Zach Bah) Medical Decision Making Impression and Plan Impression: 61 y/o FM s/p left craniotomy with resection of hemorrhagic mass. Path pending. Plan: Continue with neuro checks. Continue with rehab efforts. Follow pathology. Patient may transfer to a regular med/surg floor from NSGY's perspective. (Zach Bah) Attending Statement The exam, history, and the medical decision-making described in the above note were completed with the assistance of the mid-level provider. I reviewed and agree with the findings presented. I attest that I had a [id number] encounter with the patient on the same day, and personally performed and documented my assessment and findings in the medical record. Stable neurologic exam Incisions dry and intact Improving with therapy Okay to transfer to floor Await final pathology (Ruiz Posadas MD) Zach Bah Apr 06, 2017 17:41 Ruiz Posadas MD May 29, 2017 07:48
--- NOTE | 2017-04-06 20:55 | PD.ONC.PN ---
Subjective Subjective Remarks Ms. Zamarripa reports feeling well, she denies headaches and is happy to be allowed to eat. She feels her speech is less impaired and that the strength in her R hand and leg is improved. She is post op day 2 following craniotomy and resection of a brain mass. Final pathology is pending at this time. Objective Data Date Time Temp Pulse Resp B/P Pulse Ox O2 Delivery O2 Flow Rate FiO2 04/06/17 19:00 Room Air 04/06/17 18:00 88 04/06/17 16:00 84 04/06/17 16:00 97.9 84 22 137/64 96 04/06/17 14:00 85 04/06/17 12:00 97.8 84 19 143/79 96 04/06/17 12:00 84 04/06/17 10:00 87 04/06/17 08:19 94 21 04/06/17 08:00 74 04/06/17 08:00 97.8 74 12 153/85 96 04/06/17 07:00 96 Nasal Cannula 04/06/17 06:00 95 04/06/17 04:00 97.6 79 16 143/76 99 04/06/17 04:00 79 04/06/17 02:00 81 04/06/17 00:00 82 04/06/17 00:00 97.7 83 17 138/72 99 04/05/17 22:30 Nasal Cannula 2.00 04/05/17 22:00 97 04/05/17 21:45 98 Nasal Cannula 2.00 04/06/17 04/06/17 04/06/17 07:00 15:00 23:00 Intake Total 1019 ml 1914 ml Output Total 1451 ml 1475 ml Balance -432 ml 439 ml Result Diagram: 04/06/17 0425 04/06/17 0425 Laboratory Results Laboratory Tests Test 04/06/17 04:25 White Blood Count 6.0 TH/MM3 Red Blood Count 3.34 MIL/MM3 Hemoglobin 10.9 GM/DL Hematocrit 31.1 % Mean Corpuscular Volume 93.1 FL Mean Corpuscular Hemoglobin 32.6 PG Mean Corpuscular Hemoglobin 35.0 % Concent Red Cell Distribution Width 24.6 % Platelet Count 211 TH/MM3 Mean Platelet Volume 7.1 FL Sodium Level 137 MEQ/L Potassium Level 4.6 MEQ/L Chloride Level 102 MEQ/L Carbon Dioxide Level 27.6 MEQ/L Anion Gap 7 MEQ/L Blood Urea Nitrogen 19 MG/DL Creatinine 0.61 MG/DL Estimat Glomerular Filtration 100 ML/MIN Rate Random Glucose 148 MG/DL Calcium Level 7.2 MG/DL Protein Corrected Calcium 7.7 MG/DL Total Protein 6.1 GM/DL Administered Medications Medications (Trade) Dose Ordered Sig/Cristofer Route PRN Reason Start Time Stop Time Status Last Admin Dose Admin Miscellaneous Information 1 [id number] XX 03/31/17 00:15 04/04/17 22:02 Chlorhexidine Gluconate (Chlorhexidine 2% Cloth) Taper DAILY@04 TOP 03/31/17 04:00 03/27/18 03:59 04/06/17 03:11 Senna/Docusate Sodium 1 tab 1 tab BID PO 03/31/17 09:00 04/06/17 08:41 Nicardipine HCl/ Sodium Chloride (Cardene Inj/NS 250 ml Inj) 260 ml @ 0 mls/hr TITRATE IV 03/31/17 00:15 04/04/17 13:16 Hydralazine HCl (Apresoline Inj) 10 mg Q30M PRN IV PUSH sbp > 160 03/31/17 00:15 04/06/17 15:36 Oxycodone HCl (Roxicodone) 5 mg Q4H PRN PO pain 1-5 03/31/17 01:00 04/06/17 17:28 Amiodarone HCl (Cordarone) 200 mg DAILY PO 03/31/17 09:00 04/06/17 08:41 Pravastatin Sodium (Pravachol) 40 mg DAILY PO 03/31/17 09:00 04/06/17 08:41 Montelukast Sodium (Singulair) 10 mg HS PO 03/31/17 21:00 04/05/17 20:42 Magnesium Hydroxide 30 ml 30 ml DAILY PRN PO constipation 04/02/17 12:45 04/03/17 09:10 Potassium Chloride/Sodium Chloride (NS + KCl 20 Meq Inj) 1,000 ml @ 100 mls/hr Q10H IV 04/04/17 14:00 04/06/17 11:47 IV Flush 2 ml 2 ml BID IVF 04/04/17 21:00 04/06/17 08:41 Levetriacetam/ Sodium Chloride (Keppra Inj/NS Inj) 105 ml @ 400 mls/hr Q12H IV 04/04/17 22:00 04/06/17 08:41 Docusate Sodium (Colace) 100 mg BID PO 04/04/17 21:00 04/06/17 08:41 Pantoprazole Sodium (Protonix) 40 mg DAILY PO 04/05/17 09:00 04/06/17 08:41 Ondansetron HCl (Zofran Inj) 4 mg Q6H PRN IV NAUSEA OR VOMITING 04/04/17 12:45 04/05/17 10:30 Acetaminophen/ Hydrocodone Bitart ([place] 10-325 Mg) 2 tab Q4H PRN PO PAIN SCALE 6 TO 10 04/04/17 12:45 04/06/17 08:43 Morphine Sulfate (Morphine Inj) 2 mg Q2H PRN IV PUSH PAIN SCALE 1 TO 6 04/04/17 12:45 04/05/17 12:15 Morphine Sulfate (Morphine Inj) 4 mg Q2H PRN IV PUSH PAIN SCALE 7 TO 10 04/04/17 12:45 04/04/17 21:34 Dexamethasone Sodium Phosphate 4 mg 4 mg Q6H IV PUSH 04/04/17 16:00 04/06/17 15:36 Calcium Gluconate/ Sodium Chloride (Calcium Gluconate Inj/NS Inj) 110 ml @ 110 mls/hr UNSCH PRN IV SEE LABEL COMMENTS 04/04/17 15:00 04/04/17 15:15 Objective Remarks GENERAL: Well-nourished, well-developed patient. Middle-aged lady, sitting up in bed, not apparently distressed. Sister at bedside SKIN: Warm and dry. HEAD: bandaged, [address] EYES: No scleral icterus. No injection or drainage. NECK: Supple, trachea midline. No JVD or lymphadenopathy. LYMPHATIC: No adenopathy. CARDIOVASCULAR: Regular rate and rhythm without murmurs. RESPIRATORY: Breath sounds equal bilaterally. No accessory muscle use. GASTROINTESTINAL: Abdomen soft, non-tender, nondistended. EXTREMITIES: No cyanosis, or edema. MUSCULOSKELETAL: Adequate muscle tone. NEUROLOGICAL: Expressive aphasia not quite as pronounced today No motor deficits appreciated. PSYCHIATRIC: Appropriate mood and affect; insight and judgment normal. Assessment/Plan Problem List: (1) Intracranial hemorrhage Status: Acute Plan: -- XRT oncology consulted -- Neurosurgery following -- May possibly be due to SE of Ibrance. -- CT the head showed multifocal intracranial hemorrhage -- Cerebral angiogram ruled out questionable aneurysm -- It is not yet clear if this is a response to treatment or metastatic disease Hx/[place]: Patient was originally diagnosed with a T1 N1 M0 breast cancer in 1992. 2009 she was diagnosed with recurrent disease in the chest wall. She was given external beam radiation at that time. Most recently she has been on Faslodex and Ibrance over the last three years. Assessment 61-year-old female with a long-standing history of metastatic breast carcinoma, her disease is estrogen and progesterone receptor positive and HER-2 negative. She had been on palliative systemic therapy with Ibrance and/Faslodex. Her disease had been stable based on restaging imaging scans. She presented acutely with symptoms of auditory hallucinations, confusion, weakness of the right upper and lower extremities and expressive aphasia. Imaging studies of the brain indicated an intracranial hemorrhage in the territory of the left MCA territory , there appeared to be an associated mass ; likely metastatic carcinoma in the vicinity. The patient is scheduled to undergo craniotomy with evacuation of the bleed as well as sampling of any underlying masses identified during surgery. Plan 1. Metastatic breast carcinoma: Await final pathology on the excised brain mass. Pt has been evaluated by Rad Onc for post RT to the tumor bed. I will discuss the intracranial tumor burden with radiology and neurosurgery. If she has diffuse leptomeningeal spread, she will benefit from intrathecal chemotherapy injections, in addition to palliative systemic therapy. 2. Continue steroids. Lui López MD Apr 06, 2017 20:55
[2017-04-06] MEDS: MONTELUKAST SODIUM 10 MG TAB PO SCH (20:56)
[2017-04-07] VITALS: BP 139/73; PULSE 96; RESP 18; TEMP 98; O2SAT 95
[2017-04-07] MEDS: NS + KCL 20 MEQ INJ 1,000 ML IV SCH ×3 (02:00→13:18)
[2017-04-07] MEDS: INSULIN NovoLIN REGULAR SUPPLEMENTAL SCALE SQ SCH ×5 (03:00→20:57)
[2017-04-07 04:00] VITALS: BP 139/73; PULSE 91; RESP 16; TEMP 98; O2SAT 95
[2017-04-07] MEDS: CHLORHEXIDINE GLUCONATE 2 % 1 PACK (2 CLOTHS) TOP SCH (04:00)
[2017-04-07] MEDS: DEXAMETHASONE SOD PHOS 4 MG/ML VIAL IV PUSH SCH ×4 (05:01→20:56)
[2017-04-07 06:05] LABS: HEMATOCRIT 34.1 % (35.0-46.0); MEAN CELL VOLUME 92.6 FL (80.0-100.0); MEAN CORPUSCULAR HGB CONC 34.6 % (32.0-36.0); PLATELET COUNT 209 TH/MM3 (150-450); RED BLOOD COUNT 3.68 MIL/MM3 (4.00-5.30); RED CELL DISTRIBUTION WIDTH 25.1 % (11.6-17.2); WHITE BLOOD COUNT 6.7 TH/MM3 (4.0-11.0)
[2017-04-07 06:09] LABS: REVIEW FLAG FINAL
[2017-04-07 06:26] LABS: BICARBONATE 28.6 MEQ/L (21.0-32.0); POTASSIUM 4.5 MEQ/L (3.5-5.1)
[2017-04-07 08:00] VITALS: BP 163/99; PULSE 89; RESP 25; TEMP 98; O2SAT 100
[2017-04-07] MEDS: PRAVASTATIN SOD 40 MG TAB PO SCH (08:45)
[2017-04-07] MEDS: AMIODARONE 200 MG TAB PO SCH (08:45)
[2017-04-07] MEDS: DOCUSATE SODIUM 100 MG CAP PO SCH ×2 (08:45→20:55)
[2017-04-07] MEDS: levETIRAcetam INJ 500 MG in SODIUM CHLORIDE 0.9% INJ 100 ML IV SCH ×2 (08:45→20:56)
[2017-04-07] MEDS: SODIUM CHLORIDE 0.9% FLUSH 5 ML FLUSH IVF SCH ×2 (08:46→21:13)
[2017-04-07] MEDS: PANTOPRAZOLE SOD 40 MG DELAYED RELEASE TAB PO SCH (08:46)
[2017-04-07] MEDS: PANTOPRAZOLE SODIUM 40 MG VIAL IVP SCH (08:46)
[2017-04-07] MEDS: DOCUSATE SODIUM 50 MG/SENNA 8.6 MG TAB PO SCH ×2 (08:46→20:55)
--- NOTE | 2017-04-07 09:35 | HHI.NSPN ---
(Victor Hugo Gómez) History Chief Complaint: Some aching to the surgical site. (VictorH ugo Gómez) Interval History This is a 61-year-old female transferred from [facility]. She presented to the outside facility with right-sided weakness and difficulty speaking. She was brought to the emergency room by her family. CT head at the outside hospital demonstrated a left temporal mass with associated edema and intraparenchymal hemorrhage. She was transferred emergently to [facility]. All of her symptoms have resolved. She denies headache, weakness, numbness, speech problems currently. Denies chest pain, fever, chills, shortness of breath. She has history of breast cancer with metastases. Denies any incontinence of stool or urinary retention. Neurosurgical consultation was requested 04/03: cerebral angio shows hemorrhagic mass without evidence of aneurysm. remained clinically stable over the weekend. to OR tomorrow for biopsy/poss resection 04/05: Pt awake and alert. Sitting on edge of bed with PT. Denies headache. Mild dizziness when first got up. 04/07: Pt awake and alert. Sitting up in chair. Drains in place without much output. Mild dizziness when she gets up initially. Mild incisional discomfort. (Victor Hugo Gómez) Review of Systems General: Negative for: fever, chills, insomnia Respiratory: Negative for: shortness of breath, cough, sputum Cardiovascular: Negative for: chest pain Gastrointestinal: Negative for: nausea, vomitting, diarrhea, constipation ( Victor Hugo Gómez) Exam Results Vital Signs Date Time Temp Pulse Resp B/P Pulse Ox O2 Delivery O2 Flow Rate FiO2 04/07/17 08:00 89 04/07/17 08:00 98.0 25 163/99 100 04/07/17 07:00 Room Air 04/06/17 08:19 21 04/05/17 22:30 2.00 Intake and Output 04/06/17 04/06/17 04/07/17 08:00 16:00 00:00 Intake Total 1019 ml 1914 ml 1408 ml Output Total 1451 ml 1475 ml 1800 ml Balance -432 ml 439 ml -392 ml (Victor Hugo Gómez) Physical Examination Resp: CTA bilaterally. Heart: NSR no murmurs Abd: Soft positive bs Skin: Head bandaged. SCOT drains in place. Muscle: Moves all 4 extremities well. Neuro: Pt awake and alert. Follows commands well. Speech clear. Pupils equal 3mm bilaterally. (Victor Hugo Gómez) Lab, Micro, Other Results Last Impressions Head CT 04/04/17 0000 Signed Impressions: Service Date/Time: Tuesday, April 04, 2017 14:54 - CONCLUSION: Evacuation of the left temporal hematoma with residual persistent mass effect of the left temporal lobe. 2 subd[address] dra[address] are in place. Van More MD Chest X-Ray 04/02/17 0000 Signed Impressions: Service Date/Time: Sunday, April 02, 2017 13:56 - CONCLUSION: No acute disease Van Banks MD Head Magnetic Resonance Angiography 03/31/17 0000 Signed Impressions: Service Date/Time: Friday, March 31, 2017 09:27 - CONCLUSION: 1. No evidence of aneurysm or significant vasculopathy. 2. Significant mass effect on the middle cerebral artery vessels from the large left temporal lobe hematoma. 3. Review of MRI demonstrates small focal magnetic susceptibility lesions with enhancement. Hemorrhagic metastatic deposits versus small vascular malformations with chronic hemorrhage should be considered as possible etiologies. Amyloid angiopathy although less likely also needs to be considered. Harlan Richey MD Cerebral Arteriogram 03/31/17 Signed Impressions: Service Date/Time: Friday, March 31, 2017 15:15 - CONCLUSION: 1. No aneurysmal disease. 2. Displacement of the inferior branches of the left MCA territory secondary to the masslike parenchymal hemorrhage in the left temporal lobe. Dante Rollins MD Brain MRI 03/31/17 0000 Signed Impressions: Service Date/Time: Friday, March 31, 2017 09:27 - CONCLUSION: 1. 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 2. Associated 4 mm left to right subfalcine shift. 3. Nonspecific areas of punctate enhancement in the right occiput and tracking along the left tentorium as well as adjacent to the falx in the anterior left high parietal convexity. I do not believe the signal is characteristic of hemorrhage and would consider possible metastatic deposits. Patient does have a history of breast cancer. Dante Rollins MD ADDENDUM: Also noted, on susceptibility weighted imaging, all the areas described above show marked susceptibility artifact characteristic of some degree of hemosiderin. Again, these could represent small metastatic deposits or punctate vascular malformations which have intermittently bled in the past. These areas were not on the prior MRI of the brain report aren't imaging 07-18-2012. Dante Rollins MD Laboratory Tests Test 04/07/17 04:46 White Blood Count 6.7 TH/MM3 Red Blood Count 3.68 MIL/MM3 Hemoglobin 11.8 GM/DL Hematocrit 34.1 % Mean Corpuscular Volume 92.6 FL Mean Corpuscular Hemoglobin 32.0 PG Mean Corpuscular Hemoglobin 34.6 % Concent Red Cell Distribution Width 25.1 % Platelet Count 209 TH/MM3 Mean Platelet Volume 6.9 FL Sodium Level 136 MEQ/L Potassium Level 4.5 MEQ/L Chloride Level 100 MEQ/L Carbon Dioxide Level 28.6 MEQ/L Anion Gap 7 MEQ/L Blood Urea Nitrogen 19 MG/DL Creatinine 0.59 MG/DL Estimat Glomerular Filtration 104 ML/MIN Rate Random Glucose 178 MG/DL Calcium Level 7.7 MG/DL 04/06/17 04/06/17 04/07/17 15:00 23:00 07:00 Intake Total 1914 ml 1408 ml 1317 ml Output Total 1475 ml 1800 ml 2463 ml Balance 439 ml -392 ml -1146 ml Intake Oral 900 ml 600 ml 600 ml IV Total 1014 ml 808 ml 717 ml Output Urine Total 1400 ml 1800 ml 2400 ml Drainage Total 75 ml 63 ml # Bowel Movements 0 0 0 (Victor Hugo Gómez) Medical Decision Making Impression and Plan A: 61 y/o FM s/p left craniotomy with resection of hemorrhagic mass. Path pending. P: Continue with Neuro checks. Continue with rehab efforts. Follow pathology, pending this morning. D/C SCOT drains. (Victor Hugo Gómez) Attending Statement The exam, history, and the medical decision-making described in the above note were completed with the assistance of the mid-level provider. I reviewed and agree with the findings presented. I attest that I had a [id number] encounter with the patient on the same day, and personally performed and documented my assessment and findings in the medical record. (Joon Arellano MD) Victor Hugo Gómez Apr 07, 2017 09:35 Joon Arellano MD Apr 07, 2017 14:20
[2017-04-07] MEDS ORDERED: LIDOCAINE 1%/EPINEPHrine 1:100,000 SOLN 20 ML VIAL INFIL ONE (09:45)
[2017-04-07] MEDS ORDERED: LIDOCAINE HCL 1% 50 ML VIAL ONE (09:53)
[2017-04-07] MEDS ORDERED: LIDOCAINE 1%/EPINEPHrine 1:100,000 SOLN 30 ML VIAL ONE (09:57)
[2017-04-07] MEDS ORDERED: LIDOCAINE 1%/EPINEPHrine 1:100,000 SOLN 50 ML VIAL ONE (09:57)
[2017-04-07] MEDS: LIDOCAINE 1%/EPINEPHrine 1:200,000 PF SOLN 30 ML VIAL INFIL ONE (10:15)
[2017-04-07 12:00] VITALS: BP 136/82; PULSE 96; RESP 30; TEMP 98; O2SAT 98
[2017-04-07] MEDS ORDERED: LIDOCAINE 2%/EPINEPHrine 1:100,000 50ML MDV INFIL ONE (12:45)
[2017-04-07] MEDS: MAGNESIUM HYDROXIDE SUSP 30 ML CUP PO PRN (13:29)
[2017-04-07 16:00] VITALS: BP 155/87; PULSE 91; RESP 12; TEMP 98.8; O2SAT 92
--- NOTE | 2017-04-07 18:42 | HHI.PR ---
Subjective Remarks No new complaints. Objective Vitals Vital Signs Date Time Temp Pulse Resp B/P Pulse Ox O2 Delivery O2 Flow Rate FiO2 04/07/17 16:00 98.8 91 12 155/87 92 04/07/17 16:00 91 04/07/17 12:00 98.0 96 30 136/82 98 04/07/17 12:00 96 04/07/17 08:00 89 04/07/17 08:00 98.0 89 25 163/99 100 04/07/17 07:00 95 Room Air 04/07/17 04:00 91 04/07/17 04:00 98.0 91 16 139/73 95 Arterial Line 04/07/17 00:00 96 04/07/17 00:00 98.0 96 18 139/73 95 04/06/17 20:00 91 04/06/17 20:00 98.0 88 18 133/76 97 04/06/17 19:00 Room Air 04/06/17 04/06/17 04/07/17 15:00 23:00 07:00 Intake Total 1914 ml 1408 ml 1317 ml Output Total 1475 ml 1800 ml 2463 ml Balance 439 ml -392 ml -1146 ml Intake Oral 900 ml 600 ml 600 ml IV Total 1014 ml 808 ml 717 ml Output Urine Total 1400 ml 1800 ml 2400 ml Drainage Total 75 ml 63 ml # Bowel Movements 0 0 0 Result Diagram: 04/07/17 0446 04/07/17 0446 Imaging Last Impressions Head CT 04/04/17 0000 Signed Impressions: Service Date/Time: Tuesday, April 04, 2017 14:54 - CONCLUSION: Evacuation of the left temporal hematoma with residual persistent mass effect of the left temporal lobe. [address] in place. Van More MD Chest X-Ray 04/02/17 0000 Signed Impressions: Service Date/Time: Sunday, April 02, 2017 13:56 - CONCLUSION: No acute disease Van Banks MD Head Magnetic Resonance Angiography 03/31/17 0000 Signed Impressions: Service Date/Time: Friday, March 31, 2017 09:27 - CONCLUSION: 1. No evidence of aneurysm or significant vasculopathy. 2. Significant mass effect on the middle cerebral artery vessels from the large left temporal lobe hematoma. 3. Review of MRI demonstrates small focal magnetic susceptibility lesions with enhancement. Hemorrhagic metastatic deposits versus small vascular malformations with chronic hemorrhage should be considered as possible etiologies. Amyloid angiopathy although less likely also needs to be considered. Harlan Richey MD Cerebral Arteriogram 03/31/17 0000 Signed Impressions: Service Date/Time: Friday, March 31, 2017 15:15 - CONCLUSION: 1. No aneurysmal disease. 2. Displacement of the inferior branches of the left MCA territory secondary to the masslike parenchymal hemorrhage in the left temporal lobe. Dante Rollins MD Brain MRI 03/31/17 0000 Signed Impressions: Service Date/Time: Friday, March 31, 2017 09:27 - CONCLUSION: 1. 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 2. Associated 4 mm left to right subfalcine shift. 3. Nonspecific areas of punctate enhancement in the right occiput and tracking along the left tentorium as well as adjacent to the falx in the anterior left high parietal convexity. I do not believe the signal is characteristic of hemorrhage and would consider possible metastatic deposits. Patient does have a history of breast cancer. Dante Rollins MD ADDENDUM: Also noted, on susceptibility weighted imaging, all the areas described above show marked susceptibility artifact characteristic of some degree of hemosiderin. Again, these could represent small metastatic deposits or punctate vascular malformations which have intermittently bled in the past. These areas were not on the prior MRI of the brain report aren't imaging 07-18-2012. Dante Rollins MD Objective Remarks GENERAL: This is a well-nourished, well-developed patient, in no apparent distress. CARDIOVASCULAR: Regular rate and rhythm without murmurs, gallops, or rubs. RESPIRATORY: Clear to auscultation. Breath sounds equal bilaterally. No wheezes , rales, or rhonchi. GASTROINTESTINAL: Abdomen soft, non-tender, nondistended. Normal active bowel sounds MUSCULOSKELETAL: Extremities without clubbing, cyanosis, or edema. NEURO: Alert & Oriented x4 to person, place, time, situation. Moves all ext x4 A/P Problem List: (1) Intracranial mass Status: Acute Plan: - comgmt with Neurosurgery and Oncology - s/p left craniotomy with resection of hemorrhagic mass - pathology --> suspicious for malignancy - Oncology is considering intrathecal and palliative chemotherapy - morphine, norco, decadron, keppra, zofran (2) Breast cancer Status: Acute Plan: - comgmt with Oncology. - per Oncology prefer pt have outpt staging with CT/PET scan (3) Atrial fibrillation, chronic Status: Chronic Plan: - amiodarone Nigel Hagen DO Apr 07, 2017 18:42
[2017-04-07 20:00] VITALS: BP 157/78; PULSE 91; RESP 16; TEMP 97.2; O2SAT 94
[2017-04-07] MEDS: ACETAMINOPHEN/HYDROcodone 325 MG/10 MG TAB PO PRN (20:56)
[2017-04-07] MEDS: MONTELUKAST SODIUM 10 MG TAB PO SCH (21:02)
[2017-04-08] VITALS: BP 133/72; PULSE 84; RESP 16; TEMP 97.4; O2SAT 96
[2017-04-08] MEDS: DEXAMETHASONE SOD PHOS 4 MG/ML VIAL IV PUSH SCH ×2 (03:10→08:54)
[2017-04-08] MEDS: INSULIN NovoLIN REGULAR SUPPLEMENTAL SCALE SQ SCH ×3 (03:17→12:40)
[2017-04-08 04:00] VITALS: BP 145/85; PULSE 91; RESP 16; TEMP 97.2; O2SAT 98
[2017-04-08] MEDS: CHLORHEXIDINE GLUCONATE 2 % 1 PACK (2 CLOTHS) TOP SCH (04:00)
[2017-04-08 07:55] VITALS: BP 143/86; PULSE 84; RESP 20; TEMP 97.4; O2SAT 99
[2017-04-08] MEDS: NS + KCL 20 MEQ INJ 1,000 ML IV SCH (08:00)
[2017-04-08] MEDS: AMIODARONE 200 MG TAB PO SCH (08:43)
[2017-04-08] MEDS: DOCUSATE SODIUM 100 MG CAP PO SCH (08:44)
[2017-04-08] MEDS: PANTOPRAZOLE SOD 40 MG DELAYED RELEASE TAB PO SCH (08:45)
[2017-04-08] MEDS: DOCUSATE SODIUM 50 MG/SENNA 8.6 MG TAB PO SCH (08:45)
[2017-04-08] MEDS: PRAVASTATIN SOD 40 MG TAB PO SCH (08:45)
[2017-04-08] MEDS: SODIUM CHLORIDE 0.9% FLUSH 5 ML FLUSH IVF SCH (08:46)
[2017-04-08] MEDS: levETIRAcetam INJ 500 MG in SODIUM CHLORIDE 0.9% INJ 100 ML IV SCH (08:54)
[2017-04-08] MEDS: PANTOPRAZOLE SODIUM 40 MG VIAL IVP SCH (08:54)
[2017-04-08 11:40] VITALS: BP 137/81; PULSE 88; RESP 18; TEMP 97.6; O2SAT 97
--- NOTE | 2017-04-08 12:03 | HHI.NSPN ---
History Chief Complaint: Some aching to the surgical site. Interval History This is a 61-year-old female transferred from [facility]. She presented to the outside facility with right-sided weakness and difficulty speaking. She was brought to the emergency room by her family. CT head at the outside hospital demonstrated a left temporal mass with associated edema and intraparenchymal hemorrhage. She was transferred emergently to [place]. All of her symptoms have resolved. She denies headache, weakness, numbness, speech problems currently. Denies chest pain, fever, chills, shortness of breath. She has history of breast cancer with metastases. Denies any incontinence of stool or urinary retention. Neurosurgical consultation was requested 04/03: cerebral angio shows hemorrhagic mass without evidence of aneurysm. remained clinically stable over the weekend. to OR tomorrow for biopsy/poss resection 04/05: Pt awake and alert. Sitting on edge of bed with PT. Denies headache. Mild dizziness when first got up. 04/07: Pt awake and alert. Sitting up in chair. Drains in place without much output. Mild dizziness when she gets up initially. Mild incisional discomfort. 04/08/: Pt awake and alert. Denies headaches. No nausea or vomiting. Wants to go home. Review of Systems General: Negative for: fever, chills, insomnia Respiratory: Negative for: shortness of breath, cough, sputum Cardiovascular: Negative for: chest pain Gastrointestinal: Negative for: nausea, vomitting, diarrhea, constipation Exam Results Vital Signs Date Time Temp Pulse Resp B/P Pulse Ox O2 Delivery O2 Flow Rate FiO2 04/08/17 11:40 97.6 88 18 137/81 97 04/07/17 20:20 Room Air 04/06/17 08:19 21 04/05/17 22:30 2.00 Intake and Output 04/07/17 04/07/17 04/07/17 07:59 15:59 23:59 Intake Total 1317 ml 1625 ml Output Total 2463 ml 1300 ml Balance -1146 ml 325 ml Physical Examination Resp: CTA bilaterally. Heart: NSR no murmurs Abd: Soft positive bs Skin: Incision clean and dry. No signs of infection. Muscle: Moves all 4 extremities well. Neuro: Pt awake and alert. Follows commands well. Speech clear. Pupils equal 3mm bilaterally. Lab, Micro, Other Results Last Impressions Head CT 04/04/17 Signed Impressions: Service Date/Time: Tuesday, April 04, 2017 14:54 - CONCLUSION: Evacuation of the left temporal hematoma with residual persistent mass effect of the left temporal lobe. [address] are in place. Van More MD Chest X-Ray 04/02/17 0000 Signed Impressions: Service Date/Time: Sunday, April 02, 2017 13:56 - CONCLUSION: No acute disease Van Banks MD Head Magnetic Resonance Angiography 03/31/17 0000 Signed Impressions: Service Date/Time: Friday, March 31, 2017 09:27 - CONCLUSION: 1. No evidence of aneurysm or significant vasculopathy. 2. Significant mass effect on the middle cerebral artery vessels from the large left temporal lobe hematoma. 3. Review of MRI demonstrates small focal magnetic susceptibility lesions with enhancement. Hemorrhagic metastatic deposits versus small vascular malformations with chronic hemorrhage should be considered as possible etiologies. Amyloid angiopathy although less likely also needs to be considered. Harlan Richey MD Cerebral Arteriogram 03/31/17 Signed Impressions: Service Date/Time: Friday, March 31, 2017 15:15 - CONCLUSION: 1. No aneurysmal disease. 2. Displacement of the inferior branches of the left MCA territory secondary to the masslike parenchymal hemorrhage in the left temporal lobe. Dante Rollins MD Brain MRI 03/31/17 0000 Signed Impressions: Service Date/Time: Friday, March 31, 2017 09:27 - CONCLUSION: 1. 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 2. Associated 4 mm left to right subfalcine shift. 3. Nonspecific areas of punctate enhancement in the right occiput and tracking along the left tentorium as well as adjacent to the falx in the anterior left high parietal convexity. I do not believe the signal is characteristic of hemorrhage and would consider possible metastatic deposits. Patient does have a history of breast cancer. Dante Rollins MD ADDENDUM: Also noted, on susceptibility weighted imaging, all the areas described above show marked susceptibility artifact characteristic of some degree of hemosiderin. Again, these could represent small metastatic deposits or punctate vascular malformations which have intermittently bled in the past. These areas were not on the prior MRI of the brain report aren't imaging 07-18-2012. Dante Rollins MD 04/07/17 04/07/17 04/08/17 14:59 22:59 06:59 Intake Total 1625 ml Output Total 1300 ml Balance 325 ml Intake Oral 800 ml IV Total 825 ml Output Urine Total 1300 ml # Voids 2 2 2 # Bowel Movements 0 Medical Decision Making Impression and Plan A: 61 y/o FM s/p left craniotomy with resection of hemorrhagic mass. Path pending. P: Neurosurgically stable for discharge Follow up with Dr. Corrales next week for staple removal. Victor Hugo Gómez Apr 08, 2017 12:03
--- NOTE | 2017-04-08 14:09 | HHI.FF ---
Face to Face Verification Diagnosis: (1) Intracranial mass (2) Atrial fibrillation, chronic (3) Breast cancer Physical Therapy Order: Evaluate and Treat, Improve ambulation, Strength and gait training Home Health Nursing Order: Medical education Signs/symptoms of disease process Medication education-adverse effect Wound care and dressing changes Nursing assessment with vital signs I have seen patient Parul Zamarripa on 04/08/17. My clinical findings support the need for the requested home health care services because: Ltd mobility - disease progression Deconditioned w/ increased weakness Med compliance is questionable Limited ability to care for self Need for psychosocial assistance I certify that my clinical findings support that this patient is homebound because: Impaired cognitive ability/safety Unsafe to leave home unassisted Need for psychosocial assistance Unable to use public transportation Nigel Hagen DO Apr 08, 2017 14:09
[2017-04-08] MEDS ORDERED: LISI-515 PO (14:34)
[2017-04-08] MEDS ORDERED: DEXA4TAB PO (14:34)
--- NOTE | 2017-04-08 14:44 | HHI.DCPOC ---
Discharge Care Plan Diagnosis: (1) Intracranial hemorrhage (2) Breast cancer (3) Atrial fibrillation, chronic Goals to Promote Your Health * To prevent worsening of your condition and complications * To maintain your health at the optimal level Directions to Meet Your Goals Take your medications as prescribed Follow your dietary instruction Follow activity as directed Keep your appointments as scheduled Take your immunizations and boosters as scheduled If your symptoms worsen call your PCP, if no PCP go to Urgent Care Center or Emergency Room Smoking is Dangerous to Your Health. Avoid second hand smoke Call the 24-hour hour crisis hotline for domestic abuse at Nigel Hagen DO Apr 08, 2017 14:44
--- NOTE | 2017-04-08 14:46 | HHI.DS ---
Discharge Summary Admission Date Mar 30, 2017 at 23:53 Discharge Date: Apr 08, 2017 Admitting Diagnosis intracranial mass, intracranial hemorrhage (1) Intracranial mass Diagnosis: Principal (2) Breast cancer Diagnosis: Principal (3) Atrial fibrillation, chronic Diagnosis: [facility] Consultants Dr. Ayan Cohen, Critical Care Dr. Shellie Coffman, Hematology Dr. Jorge Alberto Gregory, Neurosurgery Procedures Stereotactic, Left temporal image-guided craniotomy, resection of metastatic carcinoma performed by Dr. Jorge Alberto Gregory (04/04/17) Brief History This is a 61-year-old female transferred from outside hospital. She originally presented to the outside facility with right-sided weakness and difficulty speaking. She was brought in by her family. CT head at the outside hospital demonstrated a left temporal mass with associated edema and intraparenchymal hemorrhage. She was transferred emergently to our facility for neurosurgery consultation. When she arrived here, she states all of her symptoms have resolved. She denies headache, weakness, numbness, speech problems currently. Denies chest pain, fever, chills, shortness of breath. She does endorse back pain which is chronic for her secondary to breast cancer metastases. The remainder the review systems is negative unless otherwise specified. 03/31 1700 hours: Imaging studies of the brain indicate probable metastatic lesions, one quite large left hemisphere. Oncology has been consulted and metastatic workup begun. Keppra started because initial event may have been a seizure. CBC/BMP: 04/07/17 0446 04/07/17 0446 Significant Findings Laboratory Tests Test 04/06/17 04/07/17 04:25 04:46 Red Blood Count 3.34 MIL/MM3 3.68 MIL/MM3 (4.00-5.30) (4.00-5.30) Hemoglobin 10.9 GM/DL (11.6-15.3) Hematocrit 31.1 % 34.1 % (35.0-46.0) (35.0-46.0) Red Cell Distribution Width 24.6 % 25.1 % (11.6-17.2) (11.6-17.2) Blood Urea Nitrogen 19 MG/DL (7-18) 19 MG/DL (7-18) Random Glucose 148 MG/DL 178 MG/DL (74-106) (74-106) Calcium Level 7.2 MG/DL 7.7 MG/DL (8.5-10.1) (8.5-10.1) Protein Corrected Calcium 7.7 MG/DL (8.5-10.1) Total Protein 6.1 GM/DL (6.4-8.2) Mean Platelet Volume 6.9 FL (7.0-11.0) PE at Discharge GENERAL: This is a well-nourished, well-developed patient, in no apparent distress. CARDIOVASCULAR: Regular rate and rhythm without murmurs, gallops, or rubs. RESPIRATORY: Clear to auscultation. Breath sounds equal bilaterally. No wheezes , rales, or rhonchi. GASTROINTESTINAL: Abdomen soft, non-tender, nondistended. Normal active bowel sounds MUSCULOSKELETAL: Extremities without clubbing, cyanosis, or edema. NEURO: Alert & Oriented x4 to person, place, time, situation. Moves all ext x4 Hospital Course (1) Intracranial mass Status: Acute Plan: - comgmt with Neurosurgery and Oncology - s/p left craniotomy with resection of hemorrhagic mass performed by Dr. Corrales (04/04/17) - pathology --> suspicious for malignancy - Oncology is considering intrathecal and palliative chemotherapy - oxycodone, decadron, keppra, zofran (2) Breast cancer Status: Acute Plan: - comgmt with Oncology. - per Oncology prefer pt have outpt staging with CT/PET scan (3) Atrial fibrillation, chronic Status: Chronic Plan: - amiodarone Pt Condition on Discharge: Stable Discharge Disposition: Disch w/ Home Health Serv Discharge Instructions DIET: Follow Instructions for: As Tolerated, No Restrictions Activities you can perform: Weight Bearing as Shobha Activities to Avoid: Driving for 24 hrs, Strenuous Activity Follow up Referrals: Oncology - 3-[address] Lui López New Medications: Dexamethasone (Dexamethasone) 4 Mg Tab 4 MG PO BID for brain metastasis, #10 TAB 0 Refills Levetiracetam (Keppra) 500 Mg Tab 500 MG PO BID for Control Seizures, #60 TAB 0 Refills Changed Medications: Lisinopril (Lisinopril) 20 Mg Tab 10 MG PO DAILY, #30 TAB 0 Refills (Changed from: 20 MG) hold for SBP below 120 Continued Medications: Amiodarone (Amiodarone) 200 Mg Tab 200 MG PO DAILY for Regulate Heart Beat, #30 TAB 0 Refills Calcium Carbonate/Vitamin D3 (Calcium 600 + Vit D Tablet) 1 Each Tablet PO DAILY Denosumab Inj (Xgeva Inj) 120 Mg/1.7 Ml Inj 120 MG SQ Q28D, VIAL 0 Refills Docusate Sodium (Docusate Sodium) 100 Mg Cap 100 MG PO BID for Prevent Constipation, #60 CAP 0 Refills Escitalopram (Escitalopram) 20 Mg Tab 20 MG PO DAILY, #30 TAB 0 Refills Famotidine (Famotidine) 20 Mg Tab 20 MG PO BID, #60 TAB 0 Refills Fluticasone Nasal [place] (Fluticasone Nasal [place]) 50 Mcg/Act Naspr Unknown Dose EACH NARE BID for Allergy Management, #1 BOTTLE 0 Refills 50 mcg/spray Fulvestrant Inj (Faslodex Inj) 250 Mg/5 Ml Syr 500 MG IM MONTHLY Furosemide (Furosemide) 20 Mg Tab 20 MG PO DAILY, #30 TAB 0 Refills Lorazepam (Lorazepam) 0.5 Mg Tab 0.5 MG PO TID PRN for ANXIETY, TAB 0 Refills Lovastatin (Lovastatin) 40 Mg Tab 40 MG PO DAILY for Cholesterol Management, #30 TAB 0 Refills Magnesium Hydroxide Liq (Milk of Magnesia Liq) 400 Mg/5 Ml Susp 30 ML PO Q6H PRN for CONSTIPATION, #1 BOTTLE 0 Refills Magnesium Oxide (Magnesium Oxide) 400 Mg Tab 400 MG PO DAILY for Nutritional Supplement, TAB 0 Refills Montelukast (Singulair) 10 Mg Tab 10 MG PO HS, #30 TAB 0 Refills Multivitamin (Multivitamins) 1 Each Tab.chew 1 TAB PO DAILY Oxycodone-Acetaminophen (Oxycodone-Acetaminophen) 5-325 mg Tab 1 TAB PO TID PRN for PAIN 1 TO 10 AND/OR AGITATION, TAB 0 Refills Palbociclib (Ibrance) 100 Mg Capsule 100 MG 21 DAYS 21 DAYS ON, 7 DAYS OFF Polyethylene Glycol 3350 (Bulk (Polyethylene Glycol 3350) 1 Pow Pow 17 GM PO DAILY Discontinued Medications: Ascorbic Acid (Acerola C) 500 Mg Tab.chew 500 MG PO DAILY Aspirin DR (Aspir-81) 81 Mg Tabdr 81 MG PO DAILY B-Complex Vitamins (Vitamin B Complex) 1 Tab 1 TAB PO DAILY Chlorpheniramine (Chlor-Trimeton) 4 Mg Tab 4 MG PO QID PRN for Allergies, TAB 0 Refills Flaxseed (Linseed) (Flax Seed Oil) 1,000 Mg Cap 1 CAP PO DAILY Metoprolol Tartrate (Metoprolol Tartrate) 25 Mg Tab 25 MG PO DAILY, #30 TAB 0 Refills [place]-3 Fatty Acids ([place] 3 1000 mg) 1 Cap Cap 1000 MG PO BID Nigel Hagen DO Apr 08, 2017 14:46
[2017-04-08] MEDS ORDERED: LEVE500 PO (14:49)
[2017-04-08] MEDS ORDERED: PERC5TAB12 PO (15:00)
[2017-04-18] MEDS ORDERED: CEPH500C (08:54)
[2017-04-18] MEDS ORDERED: DEXA4TAB PO (10:50)
[2017-04-18] MEDS ORDERED: LISI-515 PO (10:50)
[2017-04-18] MEDS ORDERED: AMIO400T PO (10:50)
== END 2017-04-08 17:10 | disposition home health service (06) | DRG 25 ==
LOC: NEPC 23:36 → NEDA 23:53 → N03B 03-31 02:17 → N06B 03-31 19:12 → N03B 04-04 10:57 → N03A 04-04 20:56 → N05A 04-07 17:58
PROVIDERS: ADMIT Internal Medicine Critical Care Medicine; ATTEND Internal Medicine Critical Care Medicine
PROC: B31RYZZ Fluoroscopy of Intracranial Arteries using Other Contrast (ICD-10-PCS; 2017-03-31)
PROC: B317YZZ Fluoroscopy of Left Internal Carotid Artery using Other Contrast (ICD-10-PCS; 2017-03-31)
PROC: 00B70ZZ Excision of Cerebral Hemisphere, Open Approach (ICD-10-PCS; principal; 2017-04-04 08:18)
DX: C79.31 Secondary malignant neoplasm of brain (principal); I61.8 Other nontraumatic intracerebral hemorrhage; G93.6 Cerebral edema; C79.51 Secondary malignant neoplasm of bone; C50.919 Malignant neoplasm of unspecified site of unspecified female breast; I48.2 Chronic atrial fibrillation; R47.01 Aphasia; G89.3 Neoplasm related pain (acute) (chronic); J44.9 Chronic obstructive pulmonary disease, unspecified; I10 Essential (primary) hypertension; E78.5 Hyperlipidemia, unspecified; F32.9 Major depressive disorder, single episode, unspecified; F41.9 Anxiety disorder, unspecified; Z17.0 Estrogen receptor positive status [ER+]; Z85.850 Personal history of malignant neoplasm of thyroid; Z88.0 Allergy status to penicillin; Z90.11 Acquired absence of right breast and nipple; Z88.5 Allergy status to narcotic agent; Z92.21 Personal history of antineoplastic chemotherapy; Z92.3 Personal history of irradiation
CPT/HCPCS: 36224; 70450; 70544; 70553; 71010; 76937; 80048; 82948; 84155; 85025; 85027; 85384; 85610; 85730; 86850; 86900; 86901; 86920; 87641; 88307; 88331; 88333; 88341; 88342; 93005; 94150; 94640; 94667; 94668; 99152; 99153; 99221; A9579; C1713; C1769; C1887; C1894; J0131; J0360; J0610; J0690; J1100; J1580; J1940; J1953; J2150; J2250; J2270; J2370; J2405; J2710; J3010; J3370; J3480; J7040; J7050; J7120; Q9967

== ENCOUNTER → 2017-04-18 | Outpatient (CLI) | payer OTHER ==
[~2017-04-18] MED LIST changes: -ALBU8I INH; +AMIO200T PO; +AMIO400T PO; -ASCO500C PO; -ATEN-104 PO; -B12-1CHW CHEW; +CALC600T64 PO; +CEPH500C; -CO Q30CA PO; +DEXA4TAB PO; +DOCU100C PO; -ECHI125C PO; +ESCI20TA PO; +FAMO20TA2 PO; -FLAX100013 PO; +FLUT50SP EACH NARE; +FURO20TA PO; +GADODIAMIDE PF 287 MG/ML 5 ML VIAL (for RAD MRI) IVCONTRAST ONE; -HYDR-3533 PO; -IBUP-232 PO; +LEVE500 PO; -LISI-360 PO; +LISI-515 PO; +LORA-373 PO; -LORA0.5T PO; -LORA10TA PO; +MAGN400T2 PO; -MEDR4PAK3 PO; +MILKSUS PO; +MONT10TA2 PO; -MULT-116 PO; +MULT-159 PO; -OMEG500C2 PO; +OXYC-432 PO; +PALB100C; +PERC5TAB12 PO; +POLYPOW5 PO; -TAB-TAB PO
--- NOTE | 2017-04-18 12:34 | RADRPT ---
EXAM DATE/TIME: 04/18/2017 11:32 [place] COMPARISON: MRI BRAIN W & W/O CONTRAST, March 31, 2017, 9:27. INDICATIONS : Metastatic disease. SRS Protocol. CONTRAST: 14 cc Omniscan (gadodiamide) IV MEDICAL HISTORY : Carcinoma, breast. Metastatic, brain. Stroke SURGICAL HISTORY : Appendectomy. Rt breast lumpectomy/ ENCOUNTER: Subsequent ACUITY: 1 week PAIN SCORE: 0/10 LOCATION: head TECHNIQUE: Multiplanar, multisequence MRI of the brain was performed both prior to and following the administrat ion of paramagnetic contrast. FINDINGS: There has been considerable interval decrease in size of a mixed content fluid space in the left temp oral region. An eccentric nodular solid component is no longer visible. There is mild gyriform enhanc ement lateral to the finding in the lateral temporal cortex. There is mild T2 prolongation in the sub cortical white matter of the temporal region. A small ring enhancing parafalcine abnormality on the l eft at the vertex is unchanged. A punctate focus of enhancement in the right occipital pole is unchan ged. The brain is elsewhere symmetric and unremarkable. The posterior fossa and brainstem structures are stable and normal. CONCLUSION: Good treatment response as above Van Banks MD on April 18, 2017 at 12:23 Board Certified Radiologist. This report was verified electronically.
== END ==
LOC: HRAD 04-17 14:32
PROVIDERS: ATTEND Radiology Radiation Oncology
DX: C79.31 Secondary malignant neoplasm of brain (principal); Z85.3 Personal history of malignant neoplasm of breast
CPT/HCPCS: 70553; A9579